=== PATIENT | female | born 1945 | race Hispanic/Latino ===

== ENCOUNTER 2018-04-11 09:50 | Emergency (ER) | payer MEDICARE ==
[~2018-04-11] VITALS: Ht 162.6 cm; Wt 147.4 kg
[~2018-04-11 09:50] MED LIST: ALDACTONE50 MG PO; BENTYL10 MG PO; FLEXERIL10 MG PO; GLIMEPIRIDE2 MG PO; IMITREX100 MG PO; LEVOTHYROXINE50 MCG PO; LISINOPRIL20 MG PO; LORAZEPAM2 MG PO; LOVASTATIN40 MG PO; NEXIUM40 MG PO
[2018-04-11] MEDS ORDERED: ONDANSETRON HCL INJ 2 MG/ML VIAL IV STA (09:56)
[2018-04-11] MEDS ORDERED: KETOROLAC TROMETHAMINE 30 MG/ML VIAL IV STA (09:56)
--- OUTSIDE RECORDS SUMMARY | 2018-04-11 09:56 | XMS REPORT | Continuity of Care Document ---
Author Author [facility] Interface Address Unknown Phone Unavailable Problems Problem Status Onset Date Classification Date Reported Comments Source UNK Active 09/09/2016 [facility] M81.0 - AGE-RELATED OSTEOPOROSIS W/O C Active 06/03/2016 [facility] N95.0 - POSTMENOPAUSAL BLEEDING Active 04/19/2016 [facility] 724.4 - LUMBOSACRAL CARLOS Active 07/10/2013 ANGELIKA Caceres Lumbar radiculopathy<sup>1</sup> Active 06/08/2012 Problem 10/02/2016 Data migrated from [employer] on 01/20/15. ANGELIKA Castro,[facility] Spinal stenosis of lumbar region<sup>2</sup> Active 06/08/2012 Problem 10/02/2016 Data migrated from [facility] on 01/20/15. ANGELIKA Castro,[facility] Diabetes Active Problem 10/02/2016 [facility] Heartburn Active Problem 10/02/2016 [facility] H/O total hysterectomy Active Problem 10/02/2016 [facility] High blood pressure Active Problem 10/02/2016 [facility] Arthritis Active Problem 10/02/2016 [facility] Anxiety and depression Active Problem 10/02/2016 [facility] MALIGNANT NEOPLASM OF ENDOMETRIUM Active [facility] Medications Medication Details Route Status Patient Instructions Ordering Provider Order Date Source gabapentin 300 MG Oral Capsule 300 mg, 1 cap, Route: PO, Drug form: CAP, TID, Dosing Weight 118.182, kg, Start date: 09/29/16 9:00:00 CDT, Duration: 30 day, Stop date: 10/28/16 17:00:00 CDT Inactive 09/29/2016 [facility] Furosemide 20 MG Oral Tablet 20 mg, 1 tab, Route: PO, Drug form: TAB, Daily, Dosing Weight 118.182, kg, Start date: 09/29/16 9:00:00 CDT, Duration: 30 day, Stop date: 10/28/16 9:00:00 CDT Inactive 09/29/2016 [facility] Metformin hydrochloride 500 MG Oral Tablet 500 mg, 1 tab, Route: PO, Drug form: TAB, BID, Dosing Weight 118.182, kg, Start date: 09/29/16 9:00:00 CDT, Duration: 30 day, Stop date: 10/28/16 17:00:00 CDT Inactive 09/29/2016 [facility] senna 8.6 mg oral tablet 8.6 mg=1 tab, PO, BID, # 100 tab, 1 Refill(s), Pharmacy: [facility] [id number] Active 09/29/2016 [facility] enoxaparin 40 mg/0.4 mL subcutaneous solution 40 mg=0.4 mL, SUB-Q, [id number], # 30 inj, 0 Refill(s), Pharmacy: [facility] Active 09/29/2016 [facility] Acetaminophen 325 MG / Hydrocodone Bitartrate 5 MG Oral Tablet 1 tab, PO, Q4H, PRN Pain Score 4-6, # 60 tab, 0 Refill(s), given to patient Active 09/29/2016 [facility] Sertraline 50 mg, 1 tab, Route: PO, Drug form: TAB, Daily, Dosing Weight 118.182, kg, Start date: 09/28/16 9:00:00 CDT, Duration: 30 day, Stop date: 10/27/16 9:00:00 CDTNotes: (Same as: Zoloft) No Longer Active 09/28/2016 [facility] Acetaminophen 300 MG / Codeine Phosphate 30 MG Oral Tablet [Tylenol with Codeine #3] 2 tab, Route: PO, Drug Form: TAB, Dosing Weight 118.182, kg, Q4Hnow, Start date: 09/28/16 9:00:00 CDT, Duration: 30 day, Stop date: 10/28/16 5:00:00 CDTNotes: Do not exceed 4gm/day of acetaminophen. (Same as: Tylenol with Codeine # 3) No Longer Active 09/28/2016 [facility] montelukast 10 mg, 1 tab, Route: PO, Drug form: TAB, Bedtime, Dosing Weight 118.182, kg, Start date: 09/27/16 21:00:00 CDT, Duration: 30 day, Stop date: 10/26/16 21:00:00 CDTNotes: (Same as:Singulair) No Longer Active 09/28/2016 [facility] Benadryl 25 mg, 1 tab, Route: PO, Drug form: TAB, Q4H, Dosing Weight 118.182, kg, PRN Other -See Comment, Start date: 09/27/16 20:54:00 CDT, Duration: 30 day, Stop date: 10/27/16 20:53:00 CDT No Longer Active 09/28/2016 [facility] Streptococcus pneumoniae serotype 1 capsular antigen diphtheria [id number] protein conjugate vaccine / Streptococcus pneumoniae serotype 14 capsular antigen diphtheria [id number] protein conjugate vaccine / Streptococcus pneumoniae serotype 18C capsular antigen d 0.5 mL, Route: IM, Drug Form: INJ, Daily, Start date: 09/27/16 17:35:00 CDT, Duration: 1 doses or times, Stop date: 09/27/16 17:35:00 CDTNotes: Lightly roll vial (DO NOT SHAKE) before administration. (Same as: Prevnar 13) Inactive 09/27/2016 [facility] Glucotrol 10 mg, 1 tab, Route: PO, Drug form: TAB, BID- Before Meals, Start date: 09/27/16 16:30:00 CDT, Duration: 30 day, Stop date: 10/27/16 7:30:00 CDTNotes: (Same as: Glucotrol) 30 min before meals. No Longer Active 09/27/2016 [facility] Lactated Ringers 500 mL 500 mL, Rate: 10 ml/hr, Infuse over: 50 hr, Route: IV, Dosing Weight 118.182 kg, Total Volume: 500, Start date: 09/27/16 13:12:00 CDT, Duration: 30 day, Stop date: 10/27/16 13:11:00 CDT No Longer Active 09/27/2016 [facility] sennosides, SENIOR CARE 8.6 mg, 1 tab, Route: PO, Drug Form: TAB, Dosing Weight 118.182, kg, BID, Start date: 09/27/16 10:58:00 CDT, Duration: 30 day, Stop date: 10/27/16 9:00:00 CDTNotes: (Same as: Senokot) No Longer Active 09/27/2016 [facility] Ibuprofen 800 mg, 1 tab, Route: PO, Drug form: TAB, Q8H, Dosing Weight 118.182, kg, PRN Pain Score 1-3, Start date: 09/27/16 10:54:00 CDT, Duration: 30 day, Stop date: 10/27/16 10:53:00 CDTNotes: (Same as: Motrin) "Do Not Crush" Take with food. No Longer Active 09/27/2016 [facility] Docusate Sodium 100 MG Oral Capsule [Colace] 100 mg, 1 cap, Route: PO, BID, Dosing Weight 118.182, kg, Start date: 09/27/16 10:46:00 CDT, Duration: 30 day, Stop date: 10/27/16 9:00:00 CDT Inactive 09/27/2016 [facility] Miralax 17 gm, 1 pkt, Route: PO, Drug form: PWDR, Daily, Dosing Weight 118.182, kg, Start date: 09/27/16 10:46:00 CDT, Duration: 30 day, Stop date: 10/27/16 9:00:00 CDTNotes: Dissolve in 8 oz of water or juice. (Same as: Miralax) No Longer Active 09/27/2016 [facility] Protonix 40 mg, 1 tab, Route: PO, Drug form: ECTAB, Daily, Dosing Weight 118.182, kg, Start date: 09/27/16 9:32:00 CDT, Duration: 30 day, Stop date: 10/27/16 9:00:00 CDTNotes: Tablet should not be chewed or crushed. (Same as: Protonix) No Longer Active 09/27/2016 [facility] Ativan 0.5 mg, 1 tab, Route: PO, Drug form: TAB, BID, Dosing Weight 118.182, kg, PRN Anxiety, Start date: 09/27/16 9:32:00 CDT, Duration: 30 day, Stop date: 10/27/16 9:31:00 CDTNotes: (Same as: Ativan) No Longer Active 09/27/2016 [facility] acetaminophen-hydrocodone 2 tab, Route: PO, Drug Form: TAB, Q4H, PRN Pain Score 7-10, Start date: 09/27/16 9:09:00 CDT, Stop date: 10/27/16 9:08:00 CDTNotes: (Same as: [place] 325/5) Do not exceed 4gm/day of acetaminophen. No Longer Active 09/27/2016 [facility] acetaminophen-hydrocodone 1 tab, Route: PO, Drug Form: TAB, Q4H, PRN Pain Score 4-6, Start date: 09/27/16 9:08:00 CDT, Stop date: 10/27/16 9:07:00 CDTNotes: (Same as: [place] 325/5) Do not exceed 4gm/day of acetaminophen. No Longer Active 09/27/2016 [facility] Albuterol 0.83 MG/ML Inhalant Solution 1.25 mg, 3 mL, Route: PO, Drug form: SOLN, RQ4H, Dosing Weight 118.182, kg, PRN Wheezing, Start date: 09/27/16 9:02:00 CDT, Duration: 30 day, Stop date: 10/27/16 9:01:00 CDTNotes: SEE RT DOCUMENTATION (Same as: Proventil) No Longer Active 09/27/2016 [facility] glimepiride 4 mg, Route: PO, Drug form: TAB, Daily, Dosing Weight 118.182, kg, Start date: 09/27/16 9:00:00 CDT, Duration: 30 day, Stop date: 10/26/16 9:00:00 CDT Inactive 09/27/2016 [facility] Lisinopril 10 mg, 2 tab, Route: PO, Drug form: TAB, Daily, Dosing Weight 118.182, kg, Start date: 09/27/16 9:00:00 CDT, Stop date: 10/26/16 9:00:00 CDTNotes: (Same as: Prinivil, Zestril) No Longer Active 09/27/2016 [facility] Lovenox 40 mg, 0.4 mL, Route: SUB-Q, Drug form: INJ, [id number], Dosing Weight 118.182, kg, Start date: 09/27/16 9:00:00 CDT, Duration: 30 day, Stop date: 10/26/16 9:00:00 CDTNotes: (Same as: Lovenox) No Longer Active 09/27/2016 [facility] Furosemide 20 MG Oral Tablet [Lasix] 20 mg, 1 tab, Route: PO, Drug form: TAB, Daily, Dosing Weight 118.182, kg, Start date: 09/27/16 9:00:00 CDT, Duration: 30 day, Stop date: 10/26/16 9:00:00 CDTNotes: (Same as: Lasix) May cause GI upset. Give with food or milk. No Longer Active 09/27/2016 [facility] Metformin hydrochloride 500 MG Oral Tablet 500 mg, 1 tab, Route: PO, Drug form: TAB, BID, Dosing Weight 118.182, kg, Start date: 09/27/16 9:00:00 CDT, Duration: 30 day, Stop date: 10/26/16 17:00:00 CDTNotes: (Same as: Glucophage) Take with meal No Longer Active 09/27/2016 [facility] gabapentin 300 MG Oral Capsule 300 mg, 1 cap, Route: PO, Drug form: CAP, Q8H, Dosing Weight 118.182, kg, (CrCl > 60 ml/min), Start date: 09/27/16 8:00:00 CDT, Duration: 30 day, Stop date: 10/27/16 0:00:00 CDTNotes: (Same as: Neurontin) No Longer Active 09/27/2016 [facility] Thyroxine 50 microgram, 1 tab, Route: PO, Drug form: TAB, Q630AM, Dosing Weight 118.182, kg, Start date: 09/27/16 6:30:00 CDT, Duration: 30 day, Stop date: 10/26/16 6:30:00 CDTNotes: Take 1 hour before or 2 hours after meal; Enteral feeds may interefere with the absorption of this medication.(Same as:Levothroid, Synthroid) No Longer Active 09/27/2016 [facility] Ofirmev 1,000 mg, 100 mL, Route: IV, Drug form: INJ, Q6Hnow, Dosing Weight 118.182, kg, for > or=50 kg, Start date: 09/26/16 15:00:00 CDT, Duration: 1 day, Stop date: 09/27/16 9:00:00 CDTNotes: Infuse over 15 minutes Do not exceed 4gm/day of acetaminophen MEDICATION WASTE Product Size: 1000 mg Product Wasted: ___ mg No Longer Active 09/26/2016 [facility] glycopyrrolate (ANES) Route: IV, Drug form: INJ, ONCE, Stop date: 09/26/16 12:09:00 CDT Inactive 09/26/2016 [facility] neostigmine (ANES) Route: IV, Drug form: INJ, ONCE, Stop date: 09/26/16 12:09:00 CDT Inactive 09/26/2016 [facility] Hydromorphone 15 mg, 30 mL, Route: IV, Initial Loading Dose: 0.4mg, NOVELTY [employer]ER Dose: 0.2 mg, NOVELTY [employer]ER Lockout: 10 minutes, Continuous Basal Rate: 0 mg, 4 Hour Limit (In MG): 6, Drug Form: INJ, Continuous, Start date: 09/26/16 12:00:00 CDT, Duration: 30 day, Stop date: 10/26/16...Notes: (Same as: Dilaudid) conc=0.5 mg/ml Hydromorphone NOVELTY MAKER Dose: ;Delay: ;Basal: No Longer Active 09/26/2016 [facility] Metoprolol 5 mg, 5 mL, Route: IVP, Drug form: INJ, Q6H, Dosing Weight 118.182, kg, PRN Other -See Comment, Start date: 09/26/16 11:56:00 CDT, Duration: 30 day, Stop date: 10/26/16 11:55:00 CDTNotes: (Same as: Lopressor) Push over 2 minutes No Longer Active 09/26/2016 [facility] Insulin, Aspart, Human 4 unit, 0.04 mL, Route: SUB-Q, Drug form: SOLN, TID-Before Meals, Dosing Weight 118.182, kg, PRN Blood Glucose Results, Start date: 09/26/16 11:55:00 CDT, Duration: 30 day, Stop date: 10/26/16 11:54:00 CDTNotes: Roll in palms of hands gently; Do not shake vigorously. (Same as: NovoLOG) "single patient use only" WASTE: F/P - Black; E - Municipal Trash Bin Stable for 28 days at room temperature. Expires in days from Date No Longer Active 09/26/2016 [facility] Glucagon 1 mg, Route: IM, Drug form: PDR/INJ, PRN, Dosing Weight 118.182, kg, PRN Blood Glucose Results, Start date: 09/26/16 11:55:00 CDT, Duration: 30 day, Stop date: 10/26/16 11:54:00 CDT No Longer Active 09/26/2016 [facility] Dextrose 50% Syringe 12.5 gm, 25 mL, Route: IVP, Drug Form: INJ, Dosing Weight 118.182, kg, PRN, PRN Blood Glucose Results, Start date: 09/26/16 11:55:00 CDT, Duration: 30 day, Stop date: 10/26/16 11:54:00 CDT No Longer Active 09/26/2016 [facility] Naloxone 0.04 mg, 0.1 mL, Route: IVP, Drug form: INJ, Q2MIN, Dosing Weight 118.182, kg, PRN Narcotic Reversal, Start date: 09/26/16 11:49:00 CDT, Duration: 30 day, Stop date: 10/26/16 11:48:00 CDTNotes: Same as Narcan No Longer Active 09/26/2016 [facility] Calcium Chloride 0.0014 MEQ/ML / Potassium Chloride 0.004 MEQ/ML / Sodium Chloride 0.103 MEQ/ML / Sodium Lactate 0.028 MEQ/ML Injectable Solution 1,000 mL, Rate: 100 ml/hr, Infuse over: 10 hr, Route: IV, Dosing Weight 118.182 kg, Total Volume: 1,000, Start date: 09/26/16 11:49:00 CDT, Duration: 30 day, Stop date: 10/26/16 11:48:00 CDT No Longer Active 09/26/2016 [facility] ondansetron (ANES) Route: IV, Drug form: INJ, ONCE, Stop date: 09/26/16 11:39:00 CDT Inactive 09/26/2016 [facility] ePHEDrine (ANES) Route: IV, Drug form: INJ, ONCE, Stop date: 09/26/16 9:24:00 CDT Inactive 09/26/2016 [facility] phenylephrine (ANES) Route: IV, Drug form: INJ, ONCE, Stop date: 09/26/16 9:24:00 CDT Inactive 09/26/2016 [facility] ceFAZolin (ANES) Route: IV, Drug form: INJ, ONCE, Stop date: 09/26/16 9:19:00 CDT Inactive 09/26/2016 [facility] metroNIDAZOLE (ANES) Route: IV, Drug form: INJ, ONCE, Stop date: 09/26/16 9:19:00 CDT Inactive 09/26/2016 [facility] lidocaine (ANES) Route: IV, Drug form: INJ, ONCE, Stop date: 09/26/16 9:19:00 CDT Inactive 09/26/2016 [facility] propofol (ANES) Route: IV, Drug form: INJ, ONCE, Stop date: 09/26/16 9:19:00 CDT Inactive 09/26/2016 [facility] fentaNYL (ANES) Route: IV, Drug form: INJ, ONCE, Stop date: 09/26/16 9:19:00 CDT Inactive 09/26/2016 [facility] acetaminophen (ANES) Route: IV, Drug form: INJ, ONCE, Stop date: 09/26/16 9:09:00 CDT Inactive 09/26/2016 [facility] rocuronium (ANES) Route: IV, Drug form: INJ, ONCE, Stop date: 09/26/16 9:04:00 CDT Inactive 09/26/2016 [facility] midazolam (ANES) Route: IV, Drug form: SOLN, ONCE, Stop date: 09/26/16 8:49:00 CDT Inactive 09/26/2016 [facility] sodium chloride 0.9% 1000 ml INJ (ANES) Route: IV, Total Volume: 1,000, Start date: 09/26/16 8:00:00 CDT, Stop date: 09/26/16 9:00:00 CDT Inactive 09/26/2016 [facility] LR 1000 mL INJ (ANES) Route: IV, Total Volume: 1,000, Start date: 09/26/16 7:49:00 CDT, Stop date: 09/26/16 8:49:00 CDT Inactive 09/26/2016 [facility] heparin 5,000 unit, Route: SUB-Q, ONCE, Dosing Weight 118.182, kg, Start date: 09/26/16 7:22:00 CDT, Stop date: 09/26/16 7:22:00 CDT Inactive 09/26/2016 [facility] Calcium Chloride 0.0014 MEQ/ML / Potassium Chloride 0.004 MEQ/ML / Sodium Chloride 0.103 MEQ/ML / Sodium Lactate 0.028 MEQ/ML Injectable Solution 1,000 mL, Rate: 25 ml/hr, Infuse over: 40 hr, Route: IV, Dosing Weight 118.182 kg, Total Volume: 1,000, Start date: 09/26/16 7:20:00 CDT, Duration: 30 day, Stop date: 10/26/16 7:19:00 CDT Inactive 09/26/2016 [facility] Insulin regular 3 unit, Route: IVP, ONCE, Dosing Weight 118.182, kg, Start date: 09/26/16 7:10:00 CDT, Stop date: 09/26/16 7:10:00 CDT Inactive 09/26/2016 [facility] 3 ML liraglutide 6 MG/ML Prefilled Syringe [Victoza] SUB- Q, Daily, 0 Refill(s) Active 09/21/2016 [facility] Metformin hydrochloride 500 MG Oral Tablet 500 mg=1 tab, PO, BID, 0 Refill(s) Active 09/21/2016 [facility] Allergies, Adverse Reactions, Alerts Substance Category Reaction Severity Reaction type Status Date Reported Comments Source Immunizations Immunization Date Given Site Status Last Updated Comments Source pneumococcal 13-valent vaccine 09/28/2016 Left Deltoid completed [facility] Results Order Name Results Value Reference Range Date Interpretation Comments Source CHEM PANEL A/G Ratio 0.7 0.7 - 1.6 09/29/2016 [facility] CHEM PANEL Globulin 3.9 g/dL 2.7 - 4.2 09/29/2016 [facility] CHEM PANEL B/C Ratio 17 6 - 25 09/29/2016 [facility] CHEM PANEL AGAP 13.8 meq/L 10.0 - 20.0 09/29/2016 [facility] CHEM PANEL eGFR 94 mL/min/1.73m2 09/29/2016 Result Comment: The eGFR is calculated using the CKD-EPI formula. In most young, healthy individuals the eGFR will be >90 mL/min/1.73m2. The eGFR declines with age. An eGFR of 60-89 may be normal in some populations, particularly the elderly, for whom the CKD-EPI formula has not been extensively validated. Use of the eGFR is not recommended in the following populations: Individuals with unstable creatinine concentrations, including patients and those with serious co-morbid conditions. Patients with extremes in muscle mass or diet. The data above are obtained from the National Kidney Disease Education Program (NKDEP) which additionally recommends that when the eGFR is used in patients with extremes of body mass index for purposes of drug dosing, the eGFR should be multiplied by the estimated BMI. [facility] CHEM PANEL AST 19 unit/L 0 - 37 09/29/2016 [facility] CHEM PANEL ALT 27 unit/L 0 - 65 09/29/2016 [facility] CHEM PANEL Total Protein 6.7 g/dL 6.4 - 8.4 09/29/2016 [facility]M PANEL Albumin Lvl 2.8 g/dL 3.5 - 5.0 09/29/2016 [facility] CHEM PANEL Bili Total 0.5 mg/dL 0.2 - 1.3 09/29/2016 [facility] CHEM PANEL Alk Phos 108 unit/L 39 - 136 09/29/2016 [facility] CHEM PANEL Glucose Lvl 169 mg/dL 70 - 99 09/29/2016 [facility] CHEM PANEL Potassium Lvl 3.8 meq/L 3.5 - 5.1 09/29/2016 [facility] CHEM PANEL Chloride Lvl 98 meq/L 95 - 109 09/29/2016 [facility] CHEM PANEL CO2 29 meq/L 24 - 32 09/29/2016 [facility] CHEM PANEL Calcium Lvl 8.7 mg/dL 8.5 - 10.5 09/29/2016 [facility] CHEM PANEL BUN 10 mg/dL 7 - 22 09/29/2016 [facility] CHEM PANEL Creatinine Lvl 0.58 mg/dL 0.50 - 1.40 09/29/2016 [facility] CHEM PANEL Sodium Lvl 137 meq/L 135 - 145 09/29/2016 [facility] CHEM PANEL Magnesium Lvl 1.8 mg/dL 1.8 - 2.4 09/29/2016 [facility] HEMATOLOGY MPV 9.1 fL 7.4 - 10.4 09/29/2016 [facility] HEMATOLOGY Platelet 214 K/CMM 133 - 450 09/29/2016 [facility] HEMATOLOGY RDW 14.0 % 11.5 - 14.5 09/29/2016 [facility] HEMATOLOGY MCHC 33.5 g/dL 32.0 - 36.0 09/29/2016 [facility] MCH 30.2 pg 27.0 - 31.0 09/29/2016 [facility] HEMATOLOGY MCV 90.1 fL 80.0 - 98.0 09/29/2016 [facility] Hct 34.5 % 36.0 - 48.0 09/29/2016 [facility] Hgb 11.6 g/dL 12.0 - 16.0 09/29/2016 [facility] WBC 12.4 K/CMM 3.7 - 10.4 09/29/2016 [facility] RBC 3.83 M/CMM 4.20 - 5.40 09/29/2016 [facility] Eosinophils # 0.3 K/CMM 0.0 - 0.5 09/29/2016 [facility] HEMATOLOGY Basophils # 0.1 K/CMM 0.0 - 0.2 09/29/2016 [facility] Basophils 1.0 % 0.0 - 1.0 09/29/2016 [facility] HEMATOLOGY Segs 73.2 % 45.0 - 75.0 09/29/2016 [facility] Monocytes 7.7 % 2.0 - 12.0 09/29/2016 [facility] Lymphocytes 15.7 % 20.0 - 40.0 09/29/2016 [facility] Eosinophils 2.4 % 0.0 - 4.0 09/29/2016 [facility] Monocytes # 1.0 K/CMM 0.0 - 0.8 09/29/2016 [facility] Lymphocytes # 1.9 K/CMM 1.0 - 5.5 09/29/2016 [facility] Segs-Bands # 9.1 K/CMM 1.5 - 8.1 09/29/2016 [facility] ELECTROLYTES AGAP 11.6 meq/L 10.0 - 20.0 09/27/2016 [facility] ELECTROLYTES eGFR 75 mL/min/1.73m2 09/27/2016 Result Comment: The eGFR is calculated using the CKD-EPI formula. In most young, healthy individuals the eGFR will be >90 mL/min/1.73m2. The eGFR declines with age. An eGFR of 60-89 may be normal in some populations, particularly the elderly, for whom the CKD-EPI formula has not been extensively validated. Use of the eGFR is not recommended in the following populations: Individuals with unstable creatinine concentrations, including patients and those with serious co-morbid conditions. Patients with extremes in muscle mass or diet. The data above are obtained from the National Kidney Disease Education Program (NKDEP) which additionally recommends that when the eGFR is used in patients with extremes of body mass index for purposes of drug dosing, the eGFR should be multiplied by the estimated BMI. [facility] ELECTROLYTES Chloride Lvl 101 meq/L 95 - 109 09/27/2016 [facility] ELECTROLYTES Potassium Lvl 4.6 meq/L 3.5 - 5.1 09/27/2016 [facility] ELECTROLYTES Calcium Lvl 8.4 mg/dL 8.5 - 10.5 09/27/2016 [facility] ELECTROLYTES CO2 27 meq/L 24 - 32 09/27/2016 [facility] ELECTROLYTES Glucose Lvl 240 mg/dL 70 - 99 09/27/2016 [facility] ELECTROLYTES Creatinine Lvl 0.80 mg/dL 0.50 - 1.40 09/27/2016 [facility] ELECTROLYTES BUN 15 mg/dL 7 - 22 09/27/2016 [facility] ELECTROLYTES Sodium Lvl 135 meq/L 135 - 145 09/27/2016 [facility] Monocytes # 1.1 K/CMM 0.0 - 0.8 09/27/2016 [facility] Lymphocytes # 1.7 K/CMM 1.0 - 5.5 09/27/2016 [facility] Segs 78.0 % 45.0 - 75.0 09/27/2016 [facility] Basophils 0.6 % 0.0 - 1.0 09/27/2016 [facility] Eosinophils 0.4 % 0.0 - 4.0 09/27/2016 [facility] Monocytes 8.3 % 2.0 - 12.0 09/27/2016 [facility] Lymphocytes 12.7 % 20.0 - 40.0 09/27/2016 [facility] Segs-Bands # 10.6 K/CMM 1.5 - 8.1 09/27/2016 [facility] Basophils # 0.1 K/CMM 0.0 - 0.2 09/27/2016 [facility] Eosinophils # 0.1 K/CMM 0.0 - 0.5 09/27/2016 [facility] WBC 13.6 K/CMM 3.7 - 10.4 09/27/2016 [facility] MCH 30.0 pg 27.0 - 31.0 09/27/2016 [facility] MCHC 33.1 g/dL 32.0 - 36.0 09/27/2016 [facility] Hgb 11.9 g/dL 12.0 - 16.0 09/27/2016 [facility] RBC 3.96 M/CMM 4.20 - 5.40 09/27/2016 [facility] HEMATOLOGY RDW 14.2 % 11.5 - 14.5 09/27/2016 [facility] HEMATOLOGY MCV 90.5 fL 80.0 - 98.0 09/27/2016 [facility] HEMATOLOGY Hct 35.9 % 36.0 - 48.0 09/27/2016 [facility] HEMATOLOGY Platelet 205 K/CMM 133 - 450 09/27/2016 [facility] MPV 8.5 fL 7.4 - 10.4 09/27/2016 [facility] BLOOD BANK RESULTS Rhig Reqd See Note 1 (09/21/16 1:27 PM) 09/21/2016 Result Comment: 09/27/2016 06:32 [id number] This patient is not a candidate for Rh(O)D immune globulin. [facility] BLOOD BANK RESULTS ABO/Rh A POS 09/21/2016 [facility] BLOOD [facility] RESULTS Antibody Scrn Negative (09/21/16 1:27 PM) 09/21/2016 [facility] CHEM PANEL Magnesium Lvl 1.8 mg/dL 1.8 - 2.4 09/21/2016 [facility] CHEM PANEL Glucose Lvl 149 mg/dL 70 - 99 09/21/2016 [facility] CHEM PANEL eGFR 90 mL/min/1.73m2 09/21/2016 Result Comment: The eGFR is calculated using the CKD-EPI formula. In most young, healthy individuals the eGFR will be >90 mL/min/1.73m2. The eGFR declines with age. An eGFR of 60-89 may be normal in some populations, particularly the elderly, for whom the CKD-EPI formula has not been extensively validated. Use of the eGFR is not recommended in the following populations: Individuals with unstable creatinine concentrations, including patients and those with serious co-morbid conditions. Patients with extremes in muscle mass or diet. The data above are obtained from the National Kidney Disease Education Program (NKDEP) which additionally recommends that when the eGFR is used in patients with extremes of body mass index for purposes of drug dosing, the eGFR should be multiplied by the estimated BMI. [facility] CHEM PANEL A/G Ratio 0.9 0.7 - 1.6 09/21/2016 [facility] CHEM PANEL Globulin 4.0 g/dL 2.7 - 4.2 09/21/2016 [facility] CHEM PANEL B/C Ratio 25 6 - 25 09/21/2016 [facility] CHEM PANEL AGAP 12.2 meq/L 10.0 - 20.0 09/21/2016 [facility] CHEM PANEL AST 15 unit/L 0 - 37 09/21/2016 [facility] CHEM PANEL Bili Total 0.7 mg/dL 0.2 - 1.3 09/21/2016 [facility] CHEM PANEL Alk Phos 102 unit/L 39 - 136 09/21/2016 [facility] CHEM PANEL CO2 27 meq/L 24 - 32 09/21/2016 [facility] CHEM PANEL Calcium Lvl 9.2 mg/dL 8.5 - 10.5 09/21/2016 [facility] CHEM PANEL Albumin Lvl 3.6 g/dL 3.5 - 5.0 09/21/2016 [facility] CHEM PANEL ALT 30 unit/L 0 - 65 09/21/2016 [facility] CHEM PANEL Total Protein 7.6 g/dL 6.4 - 8.4 09/21/2016 [facility] CHEM PANEL Chloride Lvl 102 meq/L 95 - 109 09/21/2016 [facility] CHE[facility] PANEL BUN 17 mg/dL 7 - 22 09/21/2016 [facility] PANEL Sodium Lvl 137 meq/L 135 - 145 09/21/2016 [facility]M PANEL Potassium Lvl 4.2 meq/L 3.5 - 5.1 09/21/2016 [facility]M PANEL Creatinine Lvl 0.68 mg/dL 0.50 - 1.40 09/21/2016 [facility] HEMATOLOGY MCV 89.6 fL 80.0 - 98.0 09/21/2016 [facility] HEMATOLOGY MCHC 33.5 g/dL 32.0 - 36.0 09/21/2016 [facility] HEMATOLOGY RDW 14.0 % 11.5 - 14.5 09/21/2016 [facility] HEMATOLOGY MCH 30.0 pg 27.0 - 31.0 09/21/2016 [facility] HEMATOLOGY RBC 4.66 M/CMM 4.20 - 5.40 09/21/2016 [facility] HEMATOLOGY WBC 11.8 K/CMM 3.7 - 10.4 09/21/2016 [facility] HEMATOLOGY Hct 41.8 % 36.0 - 48.0 09/21/2016 [facility] HEMATOLOGY Hgb 14.0 g/dL 12.0 - 16.0 09/21/2016 [facility] HEMATOLOGY Platelet 252 K/CMM 133 - 450 09/21/2016 [facility] HEMATOLOGY MPV 9.2 fL 7.4 - 10.4 09/21/2016 [facility] Basophils # 0.1 K/CMM 0.0 - 0.2 09/21/2016 [facility] HEMATOLOGY Lymphocytes 24.3 % 20.0 - 40.0 09/21/2016 [facility] Segs 66.9 % 45.0 - 75.0 09/21/2016 [facility] HEMATOLOGY Monocytes 6.8 % 2.0 - 12.0 09/21/2016 [facility] Eosinophils 1.4 % 0.0 - 4.0 09/21/2016 [facility] Segs-Bands # 7.9 K/CMM 1.5 - 8.1 09/21/2016 [facility] Basophils 0.6 % 0.0 - 1.0 09/21/2016 [facility] HEMATOLOGY Monocytes # 0.8 K/CMM 0.0 - 0.8 09/21/2016 [facility] Lymphocytes # 2.9 K/CMM 1.0 - 5.5 09/21/2016 [facility] Eosinophils # 0.2 K/CMM 0.0 - 0.5 09/21/2016 [facility] Digital Mammo Screening Win MA Digital Mammo Screening Win MA - DIGITAL MAMMO SCREENING WIN MA BILATERAL DIGITAL SCREENING MAMMOGRAM WITH CAD: 06/28/2016 CLINICAL: Z12.31 Encounter For Screening Mammogram For Malignant Neoplasm Of Breast. Current study was evaluated with a Computer Aided Detection (CAD) system. Comparison is made to exams dated: 12/09/2011 mammogram and 05/04/2010 mammogram [facility]. The tissue of both breasts is heterogeneously dense, which could obscure detection of small masses. There are benign appearing scattered calcifications in both breasts. No significant masses, calcifications, or other findings are seen in either breast. There has been no significant interval change. IMPRESSION: BENIGN There is no mammographic evidence of malignancy. A 1 year screening mammogram is recommended. Professional services are provided by the [facility]. Adele Eid M.D., ms/ruth:07/10/2016 11:00:42 [employer] Assistant: Anna Marie RIOS)(Tristian), [facility] This exam was dictated and interpreted by [address] [place] [address]. letter sent: Normal exam Mammogram BI-RADS: 2 Benign 06/28/2016 - - Read by: Adele Eid MD Dictated Date/time: 07/10/16 11:00 Electronically Signed by: Adele Eid MD 07/10/16 11:00 FINAL REPORT ANGELIKA Castro Bone Density DXA [employer] MA Bone Density [employer] MA - Bone Density [employer] MA BONE DENSITY EVALUATION: 06/28/2016 CLINICAL DATA: Post menopausal and clinical risk for osteoporosis. RISK FACTORS: . FINDINGS: Bone density evaluation was performed 06/28/2016 on the AP L1-L4 region of spine using a Hologic unit. The BMD average for the exam is 1.211 g/cm2. The T-score is 1.50 and the Z-score is 3.60. This matches the World Health Organization's criteria for normal bone density and places the patient within normal limits of fracture risk. An additional bone density evaluation was performed 06/28/2016 on the right femur neck using a Hologic unit. The BMD average for the exam is 0.897 g/cm2. The T-score is 0.40 and the Z-score is 1.90. This matches the World Health Organization's criteria for normal bone density and places the patient within normal limits of fracture risk. An additional bone density evaluation was performed 06/28/2016 on the right hip using a Hologic unit. The BMD average for the exam is 1.182 g/cm2. The T-score is 2.00 and the Z-score is 3.10. This matches the World Health Organization's criteria for normal bone density and places the patient within normal limits of fracture risk. An additional bone density evaluation was performed 06/28/2016 on the left femur neck using a Hologic unit. The BMD average for the exam is 0.904 g/cm2. The T- score is 0.50 and the Z-score is 2.00. This matches the World Health Organization's criteria for normal bone density and places the patient within normal limits of fracture risk. An additional bone density evaluation was performed 06/28/2016 on the left hip using a Hologic unit. The BMD average for the exam is 1.252 g/cm2. The T-score is 2.50 and the Z-score is 3.60. This matches the World Health Organization's criteria for normal bone density and places the patient within normal limits of fracture risk. IMPRESSION: BONE DENSITY WITHIN NORMAL LIMITS Patient is at normal risk for fracture. Professional services are provided by the [facility]. This exam was dictated and interpreted by [id number] for BOB Castro. Adele Eid M.D. ms/penrad:06/30/2016 09:33:06 [employer] Assistant: Henrietta DASH(Warren)(Tristian), [facility] Matthew 06/28/2016 - - Read by: Adele Eid MD Dictated Date/time: 06/30/16 09:33 Electronically Signed by: Adele Eid MD 06/30/16 09:33 FINAL REPORT BOB [place] Abdomen/Pelvis w/wo IV contrast CT Abdomen/Pelvis w/wo IV contrast CT EXAMINATION: CT of the abdomen and pelvis without and with contrast. HISTORY: C54.1 Malignant neoplasm of endometrium; lower abdominal pain; dysfunctional uterine bleeding COMPARISON: Comparison is made with pelvic ultrasound dated 04/25/2016 demonstrating abnormal endometrial thickening and a small fibroid. FINDINGS: Multiple contiguous transaxial CT images of the abdomen and pelvis are obtained without intravenous contrast. Subsequently, multiple contiguous transaxial CT images of the abdomen and pelvis are obtained following the intravenous administration of contrast. Oral contrast was administered. Delayed images are performed. Coronal and sagittal reformatted images are performed. Total DLP is 3034 mGy-cm. The visualized lung bases demonstrate no focal pneumonic consolidation, pleural effusion, or pneumothorax. The heart size is within normal limits without pericardial effusion. The liver, gallbladder, spleen, pancreas, adrenal glands, and kidneys are normal. There is no hydronephrosis. The bladder is grossly normal. There is a 1.7 cm fibroid along the uterine fundus. CT appearance of the reproductive organs is otherwise grossly normal. There is a small fat-containing umbilical hernia. The small and large bowel are normal in course and caliber without evidence of inflammation or obstruction. There is colonic diverticulosis without evidence of acute diverticulitis. The appendix is surgically absent. There is no free intraperitoneal fluid or gas. There is no abdominal or pelvic lymphadenopathy. The aorta is normal in course and caliber. There is mild atherosclerotic calcification of the abdominal aorta. There is a retroaortic left renal vein. Bone windows demonstrate no suspicious osteolytic or osteoblastic lesions. There is moderate to severe L4-5 degenerative disc disease with bilateral L4-5 and L5-S1 facet osteoarthritis. IMPRESSION: 1. Small 1.7 cm fibroid along the uterine fundus with otherwise normal CT appearance of the reproductive organs. Of note, the patient reports dysfunctional uterine bleeding and a prior pelvic ultrasound demonstrated endometrial thickening. Endometrial biopsy is recommended if not previously performed. 2. No evidence of metastatic disease within the abdomen or pelvis. 3. No CT evidence of acute intra-abdominal or intrapelvic pathologic process. There is no bowel obstruction, free intraperitoneal fluid, or free intraperitoneal gas. The appendix is surgically absent. 4. Small fat-containing umbilical hernia. 5. Colonic diverticulosis without evidence of acute diverticulitis. 6. Moderate to severe L4-L5 degenerative disc disease with bilateral L4-5 and L5- S1 facet osteoarthritis. 06/10/2016 - - Read by: Ramesh Ding MD Dictated Date/time: 06/10/16 14:52 Electronically Signed by: Ramesh Ding MD 06/10/16 15:02 FINAL REPORT ANGELIKA Castro Pelvis Transvaginal US Pelvis Transvaginal US EXAM: Pelvis Transvaginal US HISTORY: N95.0 Postmenopausal bleeding COMPARISON: None Technique: Transabdominal and Transvaginal Anaya scale and color doppler with limited spectral doppler imaging of the uterus and ovaries. Findings: The uterus measures 8.4 x 4.4 x 4.4 cm. The endometrial stripe measures 2.2 cm. There is a subserosal fibroid at the fundus which measures 1.6 cm. There are a few small cysts at the cervix, nabothian cysts. Neither ovary is seen. There is normal doppler flow. No large masses are seen in the bilateral adnexa. There is no free fluid. The bladder is distended and grossly unremarkable. IMPRESSION: Subserosal fundal fibroid measures 1.6 cm. The endometrial stripe is thickened measuring 2.2 cm. Recommend biopsy. 04/25/2016 - - Read by: Dirk Rai MD Dictated Date/time: 04/25/16 14:10 Electronically Signed by: Dirk Rai MD 04/25/16 14:17 FINAL REPORT ANGELIKA Castro Brain wo contrast MRI Brain wo contrast MRI COMPARISON: No prior exam. COMMENTS: No intracranial hemorrhage, ventriculomegaly, midline shift, or acute ischemia is seen. Flow voids are seen within the vessels at the skull base. There is no diffusion restriction. The brain volume is age-appropriate. The brainstem appears unremarkable. The cerebellum appears unremarkable. The sella appears unremarkable. Minimal bilateral maxillary sinus mucosal disease is present. IMPRESSION: 1. No acute intracranial hemorrhage, acute ischemia, or mass. 03/25/2016 - - Read by: Nikko Eaton MD Dictated Date/time: 03/25/16 10:02 Electronically Signed by: Nikko Eaton MD 03/25/16 10:27 FINAL REPORT [facility] [place] Vital Signs Vital Sign Value Date Comments Source Respitory Rate 16 09/29/2016 [facility] Temperature Oral (F) 97.8 F 09/29/2016 [facility] Respitory Rate 16 09/29/2016 [facility] Heart Rate 93 09/29/2016 [facility] Systolic (mm Hg) 137 09/29/2016 [facility] Diastolic (mm Hg) 81 09/29/2016 [facility] Temperature Oral (F) 98.5 F 09/29/2016 [facility] Systolic (mm Hg) 139 09/29/2016 [facility] Diastolic (mm Hg) 80 09/29/2016 [facility] Respitory Rate 16 09/29/2016 [facility] Heart Rate 91 09/29/2016 [facility] Temperature Oral (F) 98.1 F 09/29/2016 [facility] Heart Rate 101 09/29/2016 [facility] Systolic (mm Hg) 143 09/29/2016 [facility] Diastolic (mm Hg) 77 09/29/2016 [facility] Weight 118.182 09/21/2016 [facility] Height 162.56 cm 09/21/2016 [facility] BMI Calculated 44.72 09/21/2016 [facility] Encounters Location Location Details Encounter Type Encounter Number Reason For Visit Attending Provider ADM Date DC Date Status Source [facility] [place] [facility] [id number] John Negron 06/10/2014 06/11/2014 [facility] [place] [facility] [place] [facility] [id number] John Negron 07/10/2014 07/11/2014 [facility] [place] [facility] [place] [facility] [id number] Carlos Alberto Avila 03/25/2016 03/26/2016 [facility] [place] [facility] [place] [facility] [id number] Christine Cole 04/25/2016 04/26/2016 [facility] [place] [facility] [place] [facility] [id number] Amarilis Shah 06/10/2016 06/11/2016 [facility] [place] [facility] [place] [facility] [id number] Christine Cole 06/28/2016 06/29/2016 [facility] [place] Outpatient [id number] LAUREN JOHANSEN 09/01/2016 Active [facility] Outpatient [id number] LAUREN JOHANSEN 09/26/2016 Active [facility] Inpatient [id number] Nevin Leslie 09/26/2016 09/29/2016 [facility] Outpatient [id number] LAUREN JOHANSEN 10/06/2016 [facility] Procedures Procedure Code Date Perfomer Comments Source Appendectomy [id number] [facility] Carpal tunnel release [id number] [facility] Excision of tendon [id number] [facility] Open operation on knee meniscus [id number] [facility] Tonsillectomy [id number] [facility]
--- OUTSIDE RECORDS SUMMARY | 2018-04-11 09:56 | XMS REPORT | Summary of Care ---
Author Author [facility] [place] Organization [facility] [place] Address Unknown Phone Unavailable Encounter HQ Mavisr_morro(FIN) [id number] Date(s): 03/25/16 - 03/25/16 [facility] [place] [address] [place] [phone] Discharge Disposition: Home or Self Care Attending Physician: Carlos Alberto Avila MD Vital Signs No data available for this section Problem List Condition Effective Dates Status Health Status Informant Lumbar 06/08/12 Active radiculopathy1 Spinal stenosis of 06/08/12 Active lumbar region2 1Data migrated from [employer] on 01/20/15. 2Data migrated from [employer] on 01/20/15. Allergies, Adverse Reactions, Alerts Substance Reaction Severity Status NKDA1 Active 1Data migrated from [employer] on 07/22/15. Originally documented as NKA. Medications No data available for this section Results No data available for this section Immunizations No data available for this section Procedures No data available for this section Social History No data available for this section Assessment and Plan No data available for this section
--- OUTSIDE RECORDS SUMMARY | 2018-04-11 09:56 | XMS REPORT | Summary of Care ---
Author Author [facility] [place] Organization [facility] [place] Address Unknown Phone Unavailable Encounter HQ Mavisr_morro(FIN) [id number] Date(s): 06/10/16 - 06/10/16 [facility] [place] [address] [place] [phone] Discharge Disposition: Home or Self Care Attending Physician: Amarilis Shah MD Vital Signs No data available for [...]
--- OUTSIDE RECORDS SUMMARY | 2018-04-11 09:56 | XMS REPORT | Summary of Care ---
Author Organization Unknown Address Unknown Phone Unavailable Encounter HQ Encntr_morro([facility]) [id number] Date(s): 07/10/14 - 07/10/14 [facility] Outpatient Imaging - [address] [address] [place] Discharge Disposition: Home Physician Attending: John Negron MD Reason for Visit 719.46 - JOINT PAIN-L/LE Problem List No data available for this section Allergies, Adverse Reactions, Alerts No data available for this section Medications No data available for this section Medications Administered During Your Visit No data available for this section Immunizations No data available for this section
--- OUTSIDE RECORDS SUMMARY | 2018-04-11 09:56 | XMS REPORT | Summary of Care ---
Author Author [facility] [place] Organization [facility] [place] Address Unknown Phone Unavailable Encounter HQ Karen_morro(FIN) [id number] Date(s): 06/28/16 - 06/28/16 [facility] [place] [address] [place] [phone] Discharge Disposition: Home or Self Care Attending Physician: Christine Cole MD Vital Signs No data available for [...]
--- OUTSIDE RECORDS SUMMARY | 2018-04-11 09:56 | XMS REPORT | Summary of Care ---
Author Organization Unknown Address Unknown Phone Unavailable Encounter HQ Obinnantr_morro([facility]) [id number] Date(s): 06/10/14 - 06/10/14 [facility] Outpatient Imaging - [address] [address] [place] Discharge Disposition: Home Physician Attending: John Negron MD Reason for Visit 719.41 - JOINT PAIN-SHLD Problem List No data available for this section Allergies, Adverse Reactions, Alerts No data available for this section Medications No data available for this section Medications Administered During Your Visit No data available for this section Immunizations No data available for this section
--- OUTSIDE RECORDS SUMMARY | 2018-04-11 09:56 | XMS REPORT | Summary of Care ---
Author Author [facility] - [place] Organization [facility] [place] Address Unknown Phone Unavailable Encounter HQ Karen_morro(FIN) [id number] Date(s): 04/25/16 - 04/25/16 [facility] - [place] [address] [place] [phone] Discharge Disposition: Home or Self Care Attending [...]
--- OUTSIDE RECORDS SUMMARY | 2018-04-11 09:56 | XMS REPORT | Summary of Care ---
Author Author [facility] Organization [facility] Address Unknown Phone Unavailable Encounter [facility](BEAT[facility]) [id number] Date(s): 09/26/16 - 09/29/16 [facility] [address] [place] [address]- Discharge Disposition: Home or Self Care Attending Physician: Nevin Leslie MD Admitting Physician: Nevin Leslie MD Referring Physician: Nevin Leslie MD Vital Signs 1 2 3 Most recent to oldest [Reference Range]: 162.56 cm (09/21/16 11:17 AM) Height 97.8 DegF (09/29/16 7:37 AM) 98.5 DegF (09/29/16 4:45 AM) 98.1 DegF (09/28/16 10:23 PM) Temperature Oral [96.4-99.1 DegF] 137/81 mmHg (09/29/16 7:37 AM) 139/80 mmHg (09/29/16 4:45 AM) 143/77 mmHg *HI* (09/28/16 10:23 PM) Blood Pressure [90-140/60-90 mmHg] 16 BRMIN (09/29/16 8:41 AM) 16 BRMIN (09/29/16 7:37 AM) 16 BRMIN (09/29/16 4:45 AM) Respiratory Rate [14-20 BRMIN] 93 bpm (09/29/16 7:37 AM) 91 bpm (09/29/16 4:45 AM) 101 bpm *HI* (09/28/16 10:23 PM) Peripheral Pulse Rate [60-100 bpm] 118.182 kg (09/21/16 11:17 AM) Weight 44.72 m2 (09/21/16 11:17 AM) Body Mass Index Problem List Condition Effective Dates Status Health Status Informant Diabetes(Confirmed) Active Heartburn(Confirmed) Active H/O total Active hysterectomy(Confirm ed) High blood Active pressure(Confirmed) Arthritis(Confirmed) Active Lumbar 06/08/12 Active radiculopathy1 Anxiety and Active depression(Confirmed ) Spinal stenosis of 06/08/12 Active lumbar region2 1Data migrated from [employer] on 01/20/15. 2Data migrated from [employer] on 01/20/15. Allergies, Adverse Reactions, Alerts Substance Reaction Severity Status NKDA1 Active 1Data migrated from [employer] on 07/22/15. Originally documented as NKA. Medications acetaminophen (ANES) Route: IV, Drug form: INJ, ONCE, Stop date: 09/26/16 9:09:00 CDT Start Date: 09/26/16 Stop Date: 09/26/16 Status: Completed acetaminophen-hydrocodone 1 tab, Route: PO, Drug Form: TAB, Q4H, PRN Pain Score 4-6, Start date: 09/27/16 9:08:00 CDT, Stop date: 10/27/16 9:07:00 CDT Notes: (Same as: [place] 325/5) Do not exceed 4gm/day of acetaminophen. Start Date: 09/27/16 Stop Date: 09/29/16 Status: Discontinued acetaminophen-hydrocodone 2 tab, Route: PO, Drug Form: TAB, Q4H, PRN Pain Score 7-10, Start date: 09/27/16 9:09:00 CDT, Stop date: 10/27/16 9:08:00 CDT Notes: (Same as: [place] 325/5) Do not exceed 4gm/day of acetaminophen. Start Date: 09/27/16 Stop Date: 09/29/16 Status: Discontinued acetaminophen-hydrocodone 325 mg-5 mg oral tablet 1 tab, PO, Q4H, PRN Pain Score 4-6, # 60 tab, 0 Refill(s), given to patient Start Date: 09/29/16 Stop Date: 09/29/17 Status: Ordered albuterol 0.042% inhalation solution 1.25 mg, 3 mL, Route: PO, Drug form: SOLN, RQ4H, Dosing Weight 118.182, kg, PRN Wheezing, Start date: 09/27/16 9:02:00 CDT, Duration: 30 day, Stop date: 7 9:01:00 CDT Notes: SEE RT DOCUMENTATION (Same as: Proventil) Start Date: 09/27/16 Stop Date: 09/29/16 Status: Discontinued Ativan 0.5 mg, 1 tab, Route: PO, Drug form: TAB, BID, Dosing Weight 118.182, kg, PRN An xiety, Start date: 09/27/16 9:32:00 CDT, Duration: 30 day, Stop date: 10/27/16 9 :31:00 CDT Notes: (Same as: Ativan) Start Date: 09/27/16 Stop Date: 09/29/16 Status: Discontinued Benadryl 25 mg, 1 tab, Route: PO, Drug form: TAB, Q4H, Dosing Weight 118.182, kg, PRN Oth er -See Comment, Start date: 09/27/16 20:54:00 CDT, Duration: 30 day, Stop date: 10/27/16 20:53:00 CDT Start Date: 09/27/16 Stop Date: 09/29/16 Status: Discontinued ceFAZolin (ANES) Route: IV, Drug form: INJ, ONCE, Stop date: 09/26/16 9:19:00 CDT Start Date: 09/26/16 Stop Date: 09/26/16 Status: Completed Colace 100 mg oral capsule 100 mg, 1 cap, Route: PO, BID, Dosing Weight 118.182, kg, Start date: 09/27/16 1 0:46:00 CDT, Duration: 30 day, Stop date: 10/27/16 9:00:00 CDT Start Date: 09/27/16 Stop Date: 09/27/16 Status: Discontinued Dextrose 50% Syringe 12.5 gm, 25 mL, Route: IVP, Drug Form: INJ, Dosing Weight 118.182, kg, PRN, PRN Blood Glucose Results, Start date: 09/26/16 11:55:00 CDT, Duration: 30 day, Stop date: 10/26/16 11:54:00 CDT Start Date: 09/26/16 Stop Date: 09/29/16 Status: Discontinued Dextrose 50% Syringe 25 gm, 50 mL, Route: IVP, Drug Form: INJ, Dosing Weight 118.182, kg, PRN, PRN Bl ood Glucose Results, Start date: 09/26/16 11:55:00 CDT, Duration: 30 day, Stop d ate: 10/26/16 11:54:00 CDT Start Date: 09/26/16 Stop Date: 09/29/16 Status: Discontinued enoxaparin 40 mg/0.4 mL subcutaneous solution 40 mg=0.4 mL, SUB-Q, [id number], # 30 inj, 0 Refill(s), Pharmacy: [facility] [id number] Start Date: 09/29/16 Stop Date: 10/30/16 Status: Ordered ePHEDrine (ANES) Route: IV, Drug form: INJ, ONCE, Stop date: 09/26/16 9:24:00 CDT Start Date: 09/26/16 Stop Date: 09/26/16 Status: Completed fentaNYL (ANES) Route: IV, Drug form: INJ, ONCE, Stop date: 09/26/16 9:19:00 CDT Start Date: 09/26/16 Stop Date: 09/26/16 Status: Completed furosemide 20 mg oral tablet 20 mg, 1 tab, Route: PO, Drug form: TAB, Daily, Dosing Weight 118.182, kg, Start date: 09/29/16 9:00:00 CDT, Duration: 30 day, Stop date: 10/28/16 9:00:00 CDT Start Date: 09/29/16 Stop Date: 09/29/16 Status: Deleted gabapentin 300 mg oral capsule 300 mg, 1 cap, Route: PO, Drug form: CAP, TID, Dosing Weight 118.182, kg, Start date: 09/29/16 9:00:00 CDT, Duration: 30 day, Stop date: 10/28/16 17:00:00 CDT Start Date: 09/29/16 Stop Date: 09/29/16 Status: Deleted gabapentin 300 mg oral capsule 300 mg, 1 cap, Route: PO, Drug form: CAP, Q8H, Dosing Weight 118.182, kg, (CrCl > 60 ml/min), Start date: 09/27/16 8:00:00 CDT, Duration: 30 day, Stop date: 10/27/16 0:00:00 CDT Notes: (Same as: Neurontin) Start Date: 09/27/16 Stop Date: 09/29/16 Status: Discontinued glimepiride 4 mg, Route: PO, Drug form: TAB, Daily, Dosing Weight 118.182, kg, Start date: 0 09/27/16 9:00:00 CDT, Duration: 30 day, Stop date: 10/26/16 9:00:00 CDT Start Date: 09/27/16 Stop Date: 09/27/16 Status: Deleted glucagon 1 mg, Route: IM, Drug form: PDR/INJ, PRN, Dosing Weight 118.182, kg, PRN Blood G lucose Results, Start date: 09/26/16 11:55:00 CDT, Duration: 30 day, Stop date: 10/26/16 11:54:00 CDT Start Date: 09/26/16 Stop Date: 09/29/16 Status: Discontinued Glucotrol 10 mg, 1 tab, Route: PO, Drug form: TAB, BID-Before Meals, Start date: 09/27/16 16:30:00 CDT, Duration: 30 day, Stop date: 10/27/16 7:30:00 CDT Notes: (Same as: Glucotrol) 30 min before meals. Start Date: 09/27/16 Stop Date: 09/29/16 Status: Discontinued glycopyrrolate (ANES) Route: IV, Drug form: INJ, ONCE, Stop date: 09/26/16 12:09:00 CDT Start Date: 09/26/16 Stop Date: 09/26/16 Status: Completed heparin 5,000 unit, Route: SUB-Q, ONCE, Dosing Weight 118.182, kg, Start date: 09/26/16 7:22:00 CDT, Stop date: 09/26/16 7:22:00 CDT Start Date: 09/26/16 Stop Date: 09/26/16 Status: Completed HYDROmorphone HOSPITAL EDUCATOR 0.5mg/ml 30ml INJ 15 mg 15 mg, 30 mL, Route: IV, Initial Loading Dose: 0.4mg, HOSPITAL EDUCATOR Dose: 0.2 mg, HOSPITAL EDUCATOR Lock out: 10 minutes, Continuous Basal Rate: 0 mg, 4 Hour Limit (In MG): 6, Drug Form : INJ, Continuous, Start date: 09/26/16 12:00:00 CDT, Duration: 30 day, Stop gale e: 10/26/16... Notes: (Same as: Dilaudid) conc=0.5 mg/mlHydromorphone HOSPITAL EDUCATOR Dose: ;Delay: ;Basal: Start Date: 09/26/16 Stop Date: 09/28/16 Status: Discontinued ibuprofen 800 mg, 1 tab, Route: PO, Drug form: TAB, Q8H, Dosing Weight 118.182, kg, PRN Pa in Score 1-3, Start date: 09/27/16 10:54:00 CDT, Duration: 30 day, Stop date: 10:53:00 CDT Notes: (Same as: Kelsie)"Do Not Crush" Take with food. Start Date: 09/27/16 Stop Date: 09/29/16 Status: Discontinued insulin aspart 4 unit, 0.04 mL, Route: SUB-Q, Drug form: SOLN, TID-Before Meals, Dosing Weight 118.182, kg, PRN Blood Glucose Results, Start date: 09/26/16 11:55:00 CDT, Durat ion: 30 day, Stop date: 10/26/16 11:54:00 CDT Notes: Roll in palms of hands gently; Do not shake vigorously. (Same as: Jenny Garduno)"single patient use only"WASTE: F/P - Black; E - Municipal Trash Bin Stable f or 28 days at room temperature.Expires in days from Date Start Date: 09/26/16 Stop Date: 09/29/16 Status: Discontinued insulin aspart 2 unit, 0.02 mL, Route: SUB-Q, Drug form: SOLN, TID-Before Meals, Dosing Weight 118.182, kg, PRN Blood Glucose Results, Start date: 09/26/16 11:55:00 CDT, Durat ion: 30 day, Stop date: 10/26/16 11:54:00 CDT Notes: Roll in palms of hands gently; Do not shake vigorously. (Same as: Jenny Garduno)"single patient use only"WASTE: F/P - Black; E - Municipal Trash Bin Stable f or 28 days at room temperature.Expires in days from Date Start Date: 09/26/16 Stop Date: 09/29/16 Status: Discontinued insulin aspart 10 unit, 0.1 mL, Route: SUB-Q, Drug form: SOLN, TID-Before Meals, Dosing Weight 118.182, kg, PRN Blood Glucose Results, Start date: 09/26/16 11:55:00 CDT, Durat ion: 30 day, Stop date: 10/26/16 11:54:00 CDT Notes: Roll in palms of hands gently; Do not shake vigorously. (Same as: NovoTRU Garduno)"single patient use only"WASTE: F/P - Black; E - Municipal Trash Bin Stable f or 28 days at room temperature.Expires in days from Date Start Date: 09/26/16 Stop Date: 09/29/16 Status: Discontinued insulin aspart 8 unit, 0.08 mL, Route: SUB-Q, Drug form: SOLN, TID-Before Meals, Dosing Weight 118.182, kg, PRN Blood Glucose Results, Start date: 09/26/16 11:55:00 CDT, Durat ion: 30 day, Stop date: 10/26/16 11:54:00 CDT Notes: Roll in palms of hands gently; Do not shake vigorously. (Same as: NovoTRU G)"single patient use only"WASTE: F/P - Black; E - Municipal Trash Bin Stable f or 28 days at room temperature.Expires in days from Date Start Date: 09/26/16 Stop Date: 09/29/16 Status: Discontinued insulin aspart 6 unit, 0.06 mL, Route: SUB-Q, Drug form: SOLN, TID-Before Meals, Dosing Weight 118.182, kg, PRN Blood Glucose Results, Start date: 09/26/16 11:55:00 CDT, Durat ion: 30 day, Stop date: 10/26/16 11:54:00 CDT Notes: Roll in palms of hands gently; Do not shake vigorously. (Same as: NovoLO G)"single patient use only"WASTE: F/P - Black; E - Municipal Trash Bin Stable f or 28 days at room temperature.Expires in days from Date Start Date: 09/26/16 Stop Date: 09/29/16 Status: Discontinued Insulin regular 3 unit, Route: IVP, ONCE, Dosing Weight 118.182, kg, Start date: 09/26/16 7:10:0 0 CDT, Stop date: 09/26/16 7:10:00 CDT Start Date: 09/26/16 Stop Date: 09/26/16 Status: Completed Lactated Ringers 1,000 mL 1,000 mL, Rate: 100 ml/hr, Infuse over: 10 hr, Route: IV, Dosing Weight 118.182 kg, Total Volume: 1,000, Start date: 09/26/16 11:49:00 CDT, Duration: 30 day, St op date: 10/26/16 11:48:00 CDT Start Date: 09/26/16 Stop Date: 09/27/16 Status: Discontinued Lactated Ringers 500 mL 500 mL, Rate: 10 ml/hr, Infuse over: 50 hr, Route: IV, Dosing Weight 118.182 kg, Total Volume: 500, Start date: 09/27/16 13:12:00 CDT, Duration: 30 day, Stop da te: 10/27/16 13:11:00 CDT Start Date: 09/27/16 Stop Date: 09/28/16 Status: Discontinued Lactated Ringers Injection IV 1000 mL 1,000 mL, Rate: 25 ml/hr, Infuse over: 40 hr, Route: IV, Dosing Weight 118.182 k g, Total Volume: 1,000, Start date: 09/26/16 7:20:00 CDT, Duration: 30 day, Stop date: 10/26/16 7:19:00 CDT Start Date: 09/26/16 Stop Date: 09/26/16 Status: Discontinued Lasix 20 mg oral tablet 20 mg, 1 tab, Route: PO, Drug form: TAB, Daily, Dosing Weight 118.182, kg, Start date: 09/27/16 9:00:00 CDT, Duration: 30 day, Stop date: 10/26/16 9:00:00 CDT Notes: (Same as: Lasix) May cause GI upset. Give with food or milk. Start Date: 09/27/16 Stop Date: 09/29/16 Status: Discontinued levothyroxine 50 microgram, 1 tab, Route: PO, Drug form: TAB, Q630AM, Dosing Weight 118.182, k g, Start date: 09/27/16 6:30:00 CDT, Duration: 30 day, Stop date: 10/26/16 6:30: 00 CDT Notes: Take 1 hour before or 2 hours after meal; Enteral feeds may interefere wi th the absorption of this medication.(Same as:Levothroid, Synthroid) Start Date: 09/27/16 Stop Date: 09/29/16 Status: Discontinued lidocaine (ANES) Route: IV, Drug form: INJ, ONCE, Stop date: 09/26/16 9:19:00 CDT Start Date: 09/26/16 Stop Date: 09/26/16 Status: Completed lisinopril 10 mg, 2 tab, Route: PO, Drug form: TAB, Daily, Dosing Weight 118.182, kg, Start date: 09/27/16 9:00:00 CDT, Stop date: 10/26/16 9:00:00 CDT Notes: (Same as: Prinivil, Zestril) Start Date: 09/27/16 Stop Date: 09/29/16 Status: Discontinued lisinopril 10 mg, Route: PO, Drug form: TAB, Daily, Dosing Weight 118.182, kg, Start date: 09/27/16 9:00:00 CDT, Duration: 30 day, Stop date: 10/26/16 9:00:00 CDT Start Date: 09/27/16 Stop Date: 09/27/16 Status: Deleted Lovenox 40 mg, 0.4 mL, Route: SUB-Q, Drug form: INJ, [id number], Dosing Weight 118.182, kg , Start date: 09/27/16 9:00:00 CDT, Duration: 30 day, Stop date: 10/26/16 9:00:0 0 CDT Notes: (Same as: Lovenox) Start Date: 09/27/16 Stop Date: 09/29/16 Status: Discontinued LR 1000 mL INJ (ANES) Route: IV, Total Volume: 1,000, Start date: 09/26/16 7:49:00 CDT, Stop date: 06/14 8:49:00 CDT Start Date: 09/26/16 Stop Date: 09/26/16 Status: Completed metFORMIN 500 mg oral tablet 500 mg, 1 tab, Route: PO, Drug form: TAB, BID, Dosing Weight 118.182, kg, Start date: 09/27/16 9:00:00 CDT, Duration: 30 day, Stop date: 10/26/16 17:00:00 CDT Notes: (Same as: Glucophage) Take with meal Start Date: 09/27/16 Stop Date: 09/29/16 Status: Discontinued metFORMIN 500 mg oral tablet 500 mg=1 tab, PO, BID, 0 Refill(s) Start Date: 09/21/16 Status: Ordered metFORMIN 500 mg oral tablet 500 mg, 1 tab, Route: PO, Drug form: TAB, BID, Dosing Weight 118.182, kg, Start date: 09/29/16 9:00:00 CDT, Duration: 30 day, Stop date: 10/28/16 17:00:00 CDT Start Date: 09/29/16 Stop Date: 09/29/16 Status: Deleted metoprolol 5 mg/5 ml INJ 5 mg, 5 mL, Route: IVP, Drug form: INJ, Q6H, Dosing Weight 118.182, kg, PRN Othe r -See Comment, Start date: 09/26/16 11:56:00 CDT, Duration: 30 day, Stop date: 10/26/16 11:55:00 CDT Notes: (Same as: Lopressor)Push over 2 minutes Start Date: 09/26/16 Stop Date: 09/27/16 Status: Discontinued metroNIDAZOLE (ANES) Route: IV, Drug form: INJ, ONCE, Stop date: 09/26/16 9:19:00 CDT Start Date: 09/26/16 Stop Date: 09/26/16 Status: Completed midazolam (ANES) Route: IV, Drug form: SOLN, ONCE, Stop date: 09/26/16 8:49:00 CDT Start Date: 09/26/16 Stop Date: 09/26/16 Status: Completed MiraLax 17 gm, 1 pkt, Route: PO, Drug form: PWDR, Daily, Dosing Weight 118.182, kg, Star t date: 09/27/16 10:46:00 CDT, Duration: 30 day, Stop date: 10/27/16 9:00:00 CDT Notes: Dissolve in 8 oz of water or juice.(Same as: Miralax) Start Date: 09/27/16 Stop Date: 09/29/16 Status: Discontinued montelukast 10 mg, 1 tab, Route: PO, Drug form: TAB, Bedtime, Dosing Weight 118.182, kg, Sta rt date: 09/27/16 21:00:00 CDT, Duration: 30 day, Stop date: 10/26/16 21:00:00 C DT Notes: (Same as:Singulair) Start Date: 09/27/16 Stop Date: 09/29/16 Status: Discontinued naloxone 0.04 mg, 0.1 mL, Route: IVP, Drug form: INJ, Q2MIN, Dosing Weight 118.182, kg, P RN Narcotic Reversal, Start date: 09/26/16 11:49:00 CDT, Duration: 30 day, Stop date: 10/26/16 11:48:00 CDT Notes: Same as Narcan Start Date: 09/26/16 Stop Date: 09/29/16 Status: Discontinued neostigmine (ANES) Route: IV, Drug form: INJ, ONCE, Stop date: 09/26/16 12:09:00 CDT Start Date: 09/26/16 Stop Date: 09/26/16 Status: Completed Ofirmev 1,000 mg, 100 mL, Route: IV, Drug form: INJ, Q6Hnow, Dosing Weight 118.182, kg, for > or=50 kg, Start date: 09/26/16 15:00:00 CDT, Duration: 1 day, Stop date: 09/27/16 9:00:00 CDT Notes: Infuse over 15 minutesDo not exceed 4gm/day of acetaminophen MEDICAT ION WASTE Product Size: 1000 mgProduct Wasted: ___ mg Start Date: 09/26/16 Stop Date: 09/27/16 Status: Discontinued ondansetron (ANES) Route: IV, Drug form: INJ, ONCE, Stop date: 09/26/16 11:39:00 CDT Start Date: 09/26/16 Stop Date: 09/26/16 Status: Completed phenylephrine (ANES) Route: IV, Drug form: INJ, ONCE, Stop date: 09/26/16 9:24:00 CDT Start Date: 09/26/16 Stop Date: 09/26/16 Status: Completed pneumococcal 13-valent vaccine 0.5 mL, Route: IM, Drug Form: INJ, Daily, Start date: 09/27/16 17:35:00 CDT, Dur ation: 1 doses or times, Stop date: 09/27/16 17:35:00 CDT Notes: Lightly roll vial (DO NOT SHAKE) before administration. (Same as: Prevna r 13) Start Date: 09/27/16 Stop Date: 09/27/16 Status: Completed propofol (ANES) Route: IV, Drug form: INJ, ONCE, Stop date: 09/26/16 9:19:00 CDT Start Date: 09/26/16 Stop Date: 09/26/16 Status: Completed Protonix 40 mg, 1 tab, Route: PO, Drug form: ECTAB, Daily, Dosing Weight 118.182, kg, Sta rt date: 09/27/16 9:32:00 CDT, Duration: 30 day, Stop date: 10/27/16 9:00:00 CDT Notes: Tablet should not be chewed or crushed.(Same as: Protonix) Start Date: 09/27/16 Stop Date: 09/29/16 Status: Discontinued rocuronium (ANES) Route: IV, Drug form: INJ, ONCE, Stop date: 09/26/16 9:04:00 CDT Start Date: 09/26/16 Stop Date: 09/26/16 Status: Completed senna 8.6 mg, 1 tab, Route: PO, Drug Form: TAB, Dosing Weight 118.182, kg, BID, Start date: 09/27/16 10:58:00 CDT, Duration: 30 day, Stop date: 10/27/16 9:00:00 CDT Notes: (Same as: Senokot) Start Date: 09/27/16 Stop Date: 09/29/16 Status: Discontinued senna 8.6 mg oral tablet 8.6 mg=1 tab, PO, BID, # 100 tab, 1 Refill(s), [id number] Start Date: 09/29/16 Stop Date: 09/29/17 Status: Ordered sertraline 50 mg, 1 tab, Route: PO, Drug form: TAB, Daily, Dosing Weight 118.182, kg, Start date: 09/28/16 9:00:00 CDT, Duration: 30 day, Stop date: 10/27/16 9:00:00 CDT Notes: (Same as: Zoloft) Start Date: 09/28/16 Stop Date: 09/29/16 Status: Discontinued sodium chloride 0.9% 1000 ml INJ (ANES) Route: IV, Total Volume: 1,000, Start date: 09/26/16 8:00:00 CDT, Stop date: 06/14 9:00:00 CDT Start Date: 09/26/16 Stop Date: 09/26/16 Status: Completed Tylenol with Codeine #3 oral tablet 2 tab, Route: PO, Drug Form: TAB, Dosing Weight 118.182, kg, Q4Hnow, Start date: 09/28/16 9:00:00 CDT, Duration: 30 day, Stop date: 10/28/16 5:00:00 CDT Notes: Do not exceed 4gm/day of acetaminophen. (Same as: Tylenol with Codeine # 3) Start Date: 09/28/16 Stop Date: 09/27/16 Status: Canceled Victoza 18 mg/3 mL subcutaneous injection SUB-Q, Daily, 0 Refill(s) Start Date: 09/21/16 Status: Ordered Results BLOOD BANK RESULTS 1 2 3 Most recent to oldest [Reference Range]: A POS *Unknown* (09/21/16 1:27 PM) ABO/Rh Negative (09/21/16 1:27 PM) Antibody Scrn See Note 1 (09/21/16 1:27 PM) Rhig Reqd 1Result Comment: 09/27/2016 06:32 [id number] This patient is not a candidate for Rh(O)D immune globulin. ELECTROLYTES 1 2 3 Most recent to oldest [Reference Range]: 137 mEq/L (09/29/16 7:28 AM) 135 mEq/L (09/27/16 7:12 AM) 137 mEq/L (09/21/16 1: PM) Sodium Lvl [135-145 mEq/L] 3.8 mEq/L (09/29/16 7:28 AM) 4.6 mEq/L (09/27/16 7:12 AM) 4.2 mEq/L (09/21/16 1: PM) Potassium Lvl [3.5-5.1 mEq/L] 98 mEq/L (09/29/16 7:28 AM) 101 mEq/L (09/27/16 7:12 AM) 102 mEq/L (09/21/16 1: PM) Chloride Lvl [95-109 mEq/L] 29 mEq/L (09/29/16: AM) 27 mEq/L (09/27/16 7:12 AM) 27 mEq/L (09/21/16 1: PM) CO2 [24-32 mEq/L] 13.8 mEq/L (09/29/16: AM) 11.6 mEq/L (09/27/16 7:12 AM) 12.2 mEq/L (09/21/16 1: PM) AGAP [10.0-20.0 mEq/L] CHEM PANEL 1 2 3 Most recent to oldest [Reference Range]: 0.58 mg/dL (09/29/16 7:28 AM) 0.80 mg/dL (09/27/16 7:12 AM) 0.68 mg/dL (09/21/16 1: PM) Creatinine Lvl [0.50-1.40 mg/dL] 94 mL/min/1.73m2 1 *NA* (09/29/16:28 AM) 75 mL/min/1.73m2 2 *NA* (09/27/16 7:12 AM) 90 mL/min/1.73m2 3 *NA* (09/21/16: PM) eGFR 10 mg/dL (09/29/16 7:28 AM) 15 mg/dL (09/27/16 7:12 AM) 17 mg/dL (09/21/16 1: PM) BUN [7-22 mg/dL] 17 (5/4/17 7:28 AM) 25 (09/21/16 1:27 PM) B/C Ratio [6-25] 169 mg/dL *HI* (09/29/16 7:28 AM) 240 mg/dL *HI* (09/27/16 7:12 AM) 149 mg/dL *HI* (09/21/16 1:27 PM) Glucose Lvl [70-99 mg/dL] 6.7 g/dL (09/29/16 7:28 AM) 7.6 g/dL (09/21/16 1:27 PM) Total Protein [6.4-8.4 g/dL] 2.8 g/dL *LOW* (09/29/16 7:28 AM) 3.6 g/dL (09/21/16 1: PM) Albumin Lvl [3.5-5.0 g/dL] 3.9 g/dL (09/29/16 7:28 AM) 4.0 g/dL (09/21/16 1:27 PM) Globulin [2.7-4.2 g/dL] 0.7 (09/29/16 7:28 AM) 0.9 (09/21/16 1:27 PM) A/G Ratio [0.7-1.6] 8.7 mg/dL (09/29/16 7:28 AM) 8.4 mg/dL *LOW* (09/27/16 7:12 AM) 9.2 mg/dL (09/21/16 1:27 PM) Calcium Lvl [8.5-10.5 mg/dL] 1.8 mg/dL (09/29/16 7:28 AM) 1.8 mg/dL (09/21/16 1:27 PM) Magnesium Lvl [1.8-2.4 mg/dL] 27 unit/L (09/29/16 7:28 AM) 30 unit/L (09/21/16 1:27 PM) ALT [0-65 unit/L] 19 unit/L (09/29/16 7:28 AM) 15 unit/L (09/21/16 1:27 PM) AST [0-37 unit/L] 108 unit/L (09/29/16 7:28 AM) 102 unit/L (09/21/16 1:27 PM) Alk Phos [39-136 unit/L] 0.5 mg/dL (09/29/16 7:28 AM) 0.7 mg/dL (09/21/16 1:27 PM) Bili Total [0.2-1.3 mg/dL] 1Result Comment: The eGFR is calculated using the [...] from the National Kid[employer] Disease Education Program ( NKDEP) which additionally recommends that when the eGFR is used in patients with extremes of body mass index for purposes of drug dosing, the eGFR should be mul tiplied by the estimated BMI. 2Result Comment: The eGFR is calculated using the [...] from the National Kid[employer] Disease Education Program ( NKDEP) which additionally recommends that when the eGFR is used in patients with extremes of body mass index for purposes of drug dosing, the eGFR should be mul tiplied by the estimated BMI. 3Result Comment: The eGFR is calculated using the [...] from the National Kidney Disease Education Program ( NKDEP) which additionally recommends that when the eGFR is used in patients with extremes of body mass index for purposes of drug dosing, the eGFR should be mul tiplied by the estimated BMI. HEMATOLOGY 1 2 3 Most recent to oldest [Reference Range]: 12.4 K/CMM *HI* (09/29/16 7:28 AM) 13.6 K/CMM *HI* (09/27/16 7:12 AM) 11.8 K/CMM *HI* (09/21/16 1:27 PM) WBC [3.7-10.4 K/CMM] 3.83 M/CMM *LOW* (09/29/16:28 AM) 3.96 M/CMM *LOW* (09/27/16 7:12 AM) 4.66 M/CMM (09/21/16 1:27 PM) RBC [4.20-5.40 M/CMM] 11.6 g/dL *LOW* (09/29/16:28 AM) 11.9 g/dL *LOW* (09/27/16 7:12 AM) 14.0 g/dL (09/21/16 1:27 PM) Hgb [12.0-16.0 g/dL] 34.5 % *LOW* (09/29/16:28 AM) 35.9 % *LOW* (09/27/16 7:12 AM) 41.8 % (09/21/16 1:27 PM) Hct [36.0-48.0 %] 90.1 fL (09/29/16:28 AM) 90.5 fL (09/27/16 7:12 AM) 89.6 fL (09/21/16 1:27 PM) MCV [80.0-98.0 fL] 30.2 pg (09/29/16 7:28 AM) 30.0 pg (09/27/16 7:12 AM) 30.0 pg (09/21/16 1:27 PM) MCH [27.0-31.0 pg] 33.5 g/dL (09/29/16:28 AM) 33.1 g/dL (09/27/16 7:12 AM) 33.5 g/dL (09/21/16 1:27 PM) MCHC [32.0-36.0 g/dL] 14.0 % (09/29/16 7:28 AM) 14.2 % (09/27/16 7:12 AM) 14.0 % (09/21/16 1:27 PM) RDW [11.5-14.5 %] 214 K/CMM (09/29/16:28 AM) 205 K/CMM (09/27/16 7:12 AM) 252 K/CMM (09/21/16 1:27 PM) Platelet [133-450 K/CMM] 9.1 fL (09/29/16:28 AM) 8.5 fL (09/27/16:12 AM) 9.2 fL (09/21/16:27 PM) MPV [7.4-10.4 fL] 73.2 % (09/29/16: AM) 78.0 % *HI* (09/27/16 7:12 AM) 66.9 % (09/21/16 1:27 PM) Segs [45.0-75.0 %] 15.7 % *LOW* (09/29/16:28 AM) 12.7 % *LOW* (09/27/16 7:12 AM) 24.3 % (09/21/16 1:27 PM) Lymphocytes [20.0-40.0 %] 7.7 % (09/29/16:28 AM) 8.3 % (09/27/16 7:12 AM) 6.8 % (09/21/16 1:27 PM) Monocytes [2.0-12.0 %] 2.4 % (09/29/16:28 AM) 0.4 % (09/27/16 7:12 AM) 1.4 % (09/21/16 1:27 PM) Eosinophils [0.0-4.0 %] 1.0 % (09/29/16:28 AM) 0.6 % (09/27/16 7:12 AM) 0.6 % (09/21/16 1:27 PM) Basophils [0.0-1.0 %] 9.1 K/CMM *HI* (09/29/16 7:28 AM) 10.6 K/CMM *HI* (09/27/16 7:12 AM) 7.9 K/CMM (09/21/16 1:27 PM) Segs-Bands # [1.5-8.1 K/CMM] 1.9 K/CMM (09/29/16 7:28 AM) 1.7 K/CMM (09/27/16 7:12 AM) 2.9 K/CMM (09/21/16 1:27 PM) Lymphocytes # [1.0-5.5 K/CMM] 1.0 K/CMM *HI* (09/29/16 7:28 AM) 1.1 K/CMM *HI* (09/27/16 7:12 AM) 0.8 K/CMM (09/21/16 1:27 PM) Monocytes # [0.0-0.8 K/CMM] 0.3 K/CMM (09/29/16 7:28 AM) 0.1 K/CMM (09/27/16 7:12 AM) 0.2 K/CMM (09/21/16 1:27 PM) Eosinophils # [0.0-0.5 K/CMM] 0.1 K/CMM (09/29/16 7:28 AM) 0.1 K/CMM (09/27/16 7:12 AM) 0.1 K/CMM (09/21/16 1:27 PM) Basophils # [0.0-0.2 K/CMM] Immunizations Given and Recorded Vaccine Date Status Refusal Reason pneumococcal 13-valent vaccine 09/28/16 Given Procedures Procedure Date Related Diagnosis Body Site Appendectomy Carpal tunnel release Excision of tendon Open operation on knee meniscus Tonsillectomy Social History Social History Type Response Substance Abuse Use: None. Alcohol Never Smoking Status Never smoker; Exposure to Tobacco Smoke None; Cigarette Smoking Last 365 Days No; Reg Smoking Cessation Counseling No Assessment and Plan Extracted from: Title: Clinical Document Author: Nevin Leslie Date: 09/29/16 Progress Note - Daily [facility] Completed: September, 07:36 by Nevin Leslie MD RM: 421 - 1D, SE [id number] (: 1945) F Attending: Nevin Leslie MDPhone: Service: Oncology Reason for Admission: UNK Working DRG: Malignancy, female reproductive system w/o CC/HALF-WAY Code status: Full Code [Ordered]Current diet: Isolation: None Documented Allergies: NKDA SUBJECTIVE Feeling well Meeting all milestones OBJECTIVE General- NAD, A&Ox3 CVS- RRR Chest- CTAB no wheezing Abdomen- Soft appropriately tender, +BS, incision CDI Extremities- no CCE Skin- No rashes or lesions appreciated 24hr Labs 09/28 2131 Glucose RYT585 H 09/28 1731 Glucose GXB092 H 09/28 1626 Glucose HYQ364 H 09/28 1156 Glucose YWV782 H 09/28 0735 Glucose UDU303 H Mata still necessary (Yes/No): Line still necessary (Yes/No): VitalsTmp(F)[id number] 09/29 04:4598.769952/8016------ 09/28 22:2398.7831665/7716------ 09/28 21:12 1697 2.0L/m 09/28 20:35 2.0L/m 09/28 19:4298.996207/8216------ 24 Hr Tmax: 98.5F (36.94c) at 09/29 04:45Vital Signs are the last 5 in the past 48 hours. DateWt(kg)Wt(lb)Ht(cm)Ht(in)Method 09/21 (initial)118.18 260.00Measured 62.56 64.00Stated I&ORecordInOutBal 09/323hr Tot 0 200 -200 09/223hr Tot 910 850 60 Medications (27) Active Scheduled Meds (12): 09/27/16 enoxaparin (Lovenox) 40 mg SUB-Q krjwL64H 09/27/16 furosemide (Lasix 20 mg oral tablet) 20 mg PO Daily 09/27/16 gabapentin (gabapentin 300 mg oral capsule) 300 mg PO Q8H 09/27/16 glipiZIDE (Glucotrol) 10 mg PO BID-Before Meals 09/27/16 levothyroxine 50 microgram PO Q630AM 09/27/16 lisinopril 10 mg PO Daily 09/27/16 metFORMIN (metFORMIN 500 mg oral tablet) 500 mg PO BID 09/27/16 montelukast 10 mg PO Bedtime 09/27/16 pantoprazole (Protonix) 40 mg PO Daily 09/27/16 polyethylene glycol 3350 (MiraLax) 17 gm PO Daily 09/27/16 senna 8.6 mg PO BID 09/28/16 sertraline 50 mg PO Daily Unscheduled Meds: None PRN Meds (15): 09/26/16 Dextrose 50% in Water IV (Dextrose 50% Syringe) 12.5 gm IVP PRN 09/26/16 Dextrose 50% in Water IV (Dextrose 50% Syringe) 25 gm IVP PRN 09/27/16 LORazepam (Ativan) 0.5 mg PO BID 09/27/16 acetaminophen-hydrocodone 1 tab PO Q4H 09/27/16 acetaminophen-hydrocodone 2 tab PO Q4H 09/27/16 albuterol (albuterol 0.042% inhalation solution) 1.25 mg PO RQ4H 09/27/16 diphenhydrAMINE (Benadryl) 25 mg PO Q4H 09/26/16 glucagon 1 mg IM PRN 09/27/16 ibuprofen 800 mg PO Q8H 09/26/16 insulin aspart 2 unit SUB-Q TID-Before Meals 09/26/16 insulin aspart 4 unit SUB-Q TID-Before Meals 09/26/16 insulin aspart 6 unit SUB-Q TID-Before Meals 09/26/16 insulin aspart 8 unit SUB-Q TID-Before Meals 09/26/16 insulin aspart 10 unit SUB-Q TID-Before Meals 09/26/16 naloxone 0.04 mg IVP Q2MIN One Time Meds: None Continuous Infusions: None ASSESSMENT & EXAM 1) Pain- continue PO meds 2) Pulm/CV-VSS, continue IS 3) Heme-Hg stable, no sx of anemia. Lovenox continue. 4) GI-continue reg diet, ambultation encouraged 5) -voiding spont 6) PPX- lovenox, IS, SCDs, progressive ambulation. Nevin Leslie MD Gynecologic Oncology Staff [phone] Extracted from: Title: Clinical Document Author: Mariama Nevin Nassar Date: 09/26/16 MD R4 AUDIT OFFICER Intake H&P cc: presents for scheduled surgery History of Present Illness HPI Ms. Lennon is a 70 year old female, who presents for scheduled ExLap/SOFÍA/BSO with frozen section analysis, possible staging based on frozen section with PPALND/JOSHUA/APPY and all other indicated procedures 2/2 atyical hyperplasia bordering on adenocarcinoma. Ptnt was diagnosed with endometrial cancer by EMB after presenting with c/o postmenopausal bleeding. She reports menarche at 14 years old with regular 28 day cycles and menstruation of 3 days duration, and began menopause in her early 40s. She reports one prior episode of bleeding in 2013 for which she does not recall any diagnostics or treatments. This episode of postmenopausal bleeding began at the end of 2015, she had an endometrial biopsy on 05/27/2016 with diagnosis of atypical hyperplasia bordering on adenocarcinoma. CT AP done on 06/10/16 No evidence of metastatic disease within the abdomen or pelvis (Results in Care 4). Since that time she reports intermittent spotting for which she wears a liner daily. She also reports occasional cramping similar to menstrual cramps. She reports normal bowel and bladder. She last had a mammogram 07/10/16 BR2 and bone scan 06/30/16 showed normal risk for fracture, and has not had any colonoscopy. She has since been seen by her PCP and cleared for surgery. Patient saw Dr. Reveles and he is willing to perform hernia repair at the time of her hysterectomy at [facility]. Patient returns today for follow up and consents. She is on the OR schedule on 09/26/16. Review of Systems Const: no fever, no chills, no weight loss, no weight gain. The patient presents with complaints of vision changes. Pertinent Medical History: cataract(s), diabetes mellitus, hypertension and thyroid disease. CV: no chest pain, no palpitations. Resp: no SOB, no cough, no wheezing. The patient presents with complaints of rare episodes of mild diarrhea (one episode which she attributes to excess vegetable consumption). Skin: no skin lesions, no rash. : no urinary frequency, no urinary urgency, no dysuria, no hematuria, no abnormal vaginal bleeding, no pelvic pain. The patient presents with complaints of leg pain, radiating to the bilateral knee (chronic knee pain, bilateral). Neuro: no numbness, no tingling, no burning sensations, good coordination. Psych: depression. Endo: no hot flashes, no night sweats. Heme/Lymph: no lymphedema, no tendency for easy bruising . Active Problems Endometrial cancer determined by uterine biopsy (182.0) (C54.1) Hernia, abdominal (553.9) (K46.9) Past Medical History History of arthritis (V13.4) (Z87.39) History of asthma (V12.69) (Z87.09) History of depression (V11.8) (Z86.59) History of diabetes mellitus (V12.29) (Z86.39) History of esophageal reflux (V12.79) (Z87.19) History of hyperlipidemia (V12.29) (Z86.39) History of hypertension (V12.59) (Z86.79) History of hypothyroidism (V12.29) (Z86.39) Surgical History History of Appendectomy History of Knee Surgery History of Neuroplasty Median Nerve At Carpal Tunnel History of Tonsillectomy Family History Family history of essential hypertension (V17.49) (Z82.49) : Mother, Sister Family history of lung cancer (V16.1) (Z80.1) : Father Gynecological History Prior pregnancies: : 1. Para: 0 (full-term),0 (premature),1 (abortions)and0 (living). Additional history details: 1 miscarriage(s). She is not sexually active. Her current reproductive status is postmenopausal. For contraception, she uses no contraception. Social History Never smoker No alcohol use Current Meds Cephalexin 500 MG Oral Tablet (Cephalexin Monohydrate); Therapy: 16Ise4574 to Recorded Dicyclomine HCl - 10 MG Oral Capsule; Therapy: 21Mtl2985 to Recorded Gabapentin 300 MG Oral Capsule; Therapy: 45Iep9300 to Recorded Glimepiride 4 MG Oral Tablet; Therapy: 02Dxs5252 to Recorded Levothyroxine Sodium 50 MCG Oral Tablet; Therapy: 74Oqe6059 to Recorded Lisinopril 10 MG Oral Tablet; Therapy: 10Fkn9610 to Recorded Loperamide HCl - 1 MG/5ML Oral Liquid; Therapy: 28Mwq8242 to Recorded Loperamide HCl 2 MG TABS; Therapy: 49Zec0620 to Recorded LORazepam 2 MG Oral Tablet; Therapy: 41Gjn7365 to Recorded MetFORMIN HCl - 500 MG Oral Tablet; Therapy: 36Ghc1828 to Recorded MetOLazone 2.5 MG Oral Tablet; Therapy: 58Mum4786 to Recorded Montelukast Sodium 10 MG Oral Tablet; Therapy: 59Wqx2002 to Recorded Omeprazole 40 MG Oral Capsule Delayed Release; Therapy: 93Edp3213 to Recorded Pantoprazole Sodium 40 MG Oral Tablet Delayed Release; Therapy: 17Vog1817 to Recorded Potassium Chloride Rosalee ER 20 MEQ Oral Tablet Extended Release; Therapy: 65Mkf6645 to Recorded Sertraline HCl - 50 MG Oral Tablet; Therapy: 65Xtq0326 to Recorded Torsemide 20 MG Oral Tablet; Therapy: 00Msw0239 to Recorded Vitamin D3 5000 UNIT Oral Tablet; Therapy: 47Krz9547 to Recorded Allergies No Known Drug Allergies Physical Exam defer to time of presentation for surgery COMPARISON: Comparison is made with pelvic ultrasound [...] bilateral L4-5 and L5- S1 facet osteoarthritis. Labs 07/13/16: CEA 0.6, Hgb 13.5, plt 246, CA125, 7.9, HgbA1C 8.6%, TSH 2.96, ALT 29, AST 14, Cr 0.8 Assessment & Plan 70 year old female, who presents for scheduled ExLap/SOFÍA/BSO with frozen section analysis, possible staging based on frozen section with PPALND/JOSHUA/APPY and all other indicated procedures 2/2 atyical hyperplasia bordering on adenocarcinoma 1) Atypical hyperplasia bordering on adenocarcinoma: proceed to or for scheduled surgery-- exlap/SOFÍA/BSO with frozen section analysis, possible staging based on frozen section with PPALND/JOSHUA/APPY/other indicated procedures. Risks/ benefits/ alternatives discussed with the patient including risk of bleeding, risk of need for hysterectomy, risk of infection, risk of need for transfusion including but not limited to transfusion reaction which can be as simple as fever and as severe as end organ damage or risk of acquisition of bloodbourne infection such as HIV or hepatitis, as well as risk of injury to surrounding structures including but not limited to bowel, bladder, ovaries, nerves, vessels, ureters. Risk of VTE, PNA and other unforseen risks also d/w ptnt. Patient verbalizes understanding and wishes to continue with the procedure. RTC in 2wks for postop check 2) Umbilical hernia: Dr. Revlees (general surgery) to perform co-surgery 3) Comorbidities: plan to resume home meds while in house Plan per Dr. Mariama Antonio MD, PGY4 Obstetrics & Gynecology [facility]
[2018-04-11] MEDS ORDERED: ACETAMINOPHEN 325 MG TAB PO ONE ×2 (10:00→12:00)
--- NOTE | 2018-04-11 10:59 | Diagnostic Imaging Report ---
EXAMINATION: Head and cervical spine CT without contrast. HISTORY: Alteration of consciousness. Status post fall the day before, CVA. Head and neck pain. COMPARISON: None. TECHNIQUE: Multidetector axial images were obtained without contrast from the foramen magnum to the vertex and through the cervical spine. The images were reconstructed using brain and bone algorithms. Thin section brain images were reformatted into coronal and sagittal planes. Dose modulation, iterative reconstruction, and/or weight based adjustment of the mA/kV was utilized to reduce the radiation dose to as low as reasonably achievable. Image quality: X-ray beam attenuation/patient's motion limits the evaluation of the lower cervical spine. HEAD CT FINDINGS: Skull: No lytic or blastic lesions. No fractures. Parenchyma: Normal. No mass, hemorrhage or CT evidence of acute vascular insult. Brain volume: Normal for age. Ventricles: No hydrocephalus or displacement. Arteries: No density suggestive of thrombus. Dural sinuses: No abnormal density. Extra-axial spaces: No abnormal density. Foramen magnum: No mass, Chiari malformation, or basilar invagination. Sella: No obvious mass. Paranasal/mastoid sinuses: Imaged portions unremarkable. CERVICAL SPINE CT FINDINGS: Alignment:Normal alignment and lordosis. Soft tissues: Normal. Vertebrae: Normal height and density. No acute fracture, infection or neoplasm. Degenerative changes: C1-C2: Normal C2-C3: Facet arthrosis on the right without significant stenoses. C3-C4: Uncovertebral and facet arthrosis. Moderate foraminal stenoses worse on the right. C4-C5: Bilateral facet arthrosis. Mild foraminal stenosis midline and the right. C5-C6: Disc osteophyte formation, bilateral uncovertebral and facet arthrosis. Moderate bilateral foraminal stenoses. C6-C7: Disc osteophyte complex formation asymmetric to the left, uncovertebral and facet arthrosis mainly on the left. Moderately severe left foraminal stenosis. C7-T1: Uncovertebral and facet processes. Moderate foraminal stenoses. IMPRESSION: Head CT: No intracranial abnormalities, particularly no acute postraumatic intracranial hemorrhage. Cervical spine CT: 1. No acute fractures or dislocations. 2. Chronic degenerative changes as described. Note: Acute post traumatic spinal cord, vascular or ligamentous injury cannot adequately be assessed with CT. Signed by: Dr. Krystle Colvin M.D. on 04/11/2018 10:55 AM
--- NOTE | 2018-04-11 11:19 | Diagnostic Imaging Report ---
Exam: Right shoulder, single view History: Fall, concern for fracture Comparison: None. Findings: No acute, displaced fracture or dislocation though evaluation is limited on this single frontal radiograph. Moderate degenerative changes of the acromioclavicular and glenohumeral joints. Partially visualized right hemithorax is well aerated. Impression: No acute displaced fracture. Signed by: Dr. Cash Pruett M.D. on 04/11/2018 11:15 AM
--- NOTE | 2018-04-11 11:21 | Diagnostic Imaging Report ---
Exam: Right knee 2 views History: Fall, concern for fracture Comparison: None. Findings: No acute, displaced fracture or dislocation. Moderate medial and patellofemoral compartment predominant tricompartmental joint space disease with joint space narrowing, subchondral sclerosis, and marginal osteophytosis. No significant joint effusion. Soft tissues unremarkable. Impression: No acute osseous abnormalities. Moderate degenerative joint disease. Signed by: Dr. Cash Pruett M.D. on 04/11/2018 11:18 AM
--- NOTE | 2018-04-11 11:24 | Diagnostic Imaging Report ---
Exam: Right hip 2 views, pelvis History: Status post fall, concern for fracture Comparison: None. Findings: No acute, displaced fracture or dislocation. The femoral head projects appropriately over the acetabulum. There is mild symmetric joint space narrowing of the hips with marginal acetabular osteophytosis. Sacroiliac joints are intact. Soft tissues are unremarkable. Impression: No acute osseous abnormality. Signed by: Dr. Cash Pruett M.D. on 04/11/2018 11:20 AM
[2018-04-11] MEDS ORDERED: ONDANSETRON HCL 4 MG ORAL DISINTEGRATING TAB PO ONE (11:45)
[2018-04-11] MEDS ORDERED: KETOROLAC TROMETHAMINE 60 MG/2 ML VIAL IM ONE (11:45)
== END 2018-04-11 12:41 | disposition home or self-care (01) ==
LOC: ER 09:53
DX: S00.83XA Contusion of other part of head, initial encounter (principal); S40.011A Contusion of right shoulder, initial encounter; S70.01XA Contusion of right hip, initial encounter; W06.XXXA Fall from bed, initial encounter; Y93.84 Activity, sleeping; Y92.003 Bedroom of unspecified non-institutional (private) residence as the place of occurrence of the external cause; I10 Essential (primary) hypertension; E11.9 Type 2 diabetes mellitus without complications; E78.5 Hyperlipidemia, unspecified; E66.01 Morbid (severe) obesity due to excess calories
CPT/HCPCS: 70450; 72125; 73020; 73502; 73560; 99284; J1885; J2405

== ENCOUNTER 2018-07-27 19:42 | Emergency (ER) | payer MEDICARE ==
[~2018-07-27] VITALS: Ht 162.6 cm; Wt 147.4 kg
--- OUTSIDE RECORDS SUMMARY | 2018-07-27 19:47 | XMS REPORT ---
Author Author [facility] Address Unknown Phone Unavailable Care Team Providers Care Divider Operator Name Role Phone Alicia WEN Unavailable Unavailable Problems This patient has no known problems. Allergies, Adverse Reactions, Alerts This patient has no known allergies or adverse reactions. Medications This patient has no known medications. Results Test Description Test Time Test Comments Text Results Atomic Results Result Comments HIP RIGHT 2-3 VW (+/- PELVIS) 2018-04-11 11:18:00 [place] [address] Patient Name: JOSE SHAH MR #: [id number] : 1945 Age/Sex: 72/F Req #: [id number] Adm Physician: Ordered by: JENNIFER WEN MD Report #: [id number] Location: ER Room/Bed: Procedure: [id number] DX/HIP RIGHT 2-3 VW (+/- PELVIS) Exam Date: Exam Time: REPORT STATUS: Signed Exam: Right hip 2 views, pelvis History: Status post fall, concern for fracture Comparison: None. Findings: No acute, displaced fracture or dislocation. The femoral head projects appropriately over the acetabulum. There is mild symmetric joint space narrowing of the hips with marginal acetabular osteophytosis. Sacroiliac joints are intact. Soft tissues are unremarkable. Impression: No acute osseous abnormality. Signed by: Dr. Tito Mcneill M.D. on 04/11/2018 11:20 AM Dictated By: TITO MCNEILL MD 19 Transcribed By: TUTU on 04/11/181119 COPY TO: JENNIFER WEN MD KNEE RIGHT 1-2 VIEWS 2018-04-11 11:15:00 [place] [address] Patient Name: JOSE SHAH MR #: [id number] : 1945 Age/Sex: 72/F Req #: [id number] Adm Physician: Ordered by: JENNIFER WEN MD Report #: [id number] Location: ER Room/Bed: Procedure: [id number] DX/KNEE RIGHT 1-2 VIEWS Exam Date: Exam Time: REPORT STATUS: Signed Exam: Right knee 2 views History: Fall, concern for fracture Comparison: None. Findings: No acute, displaced fracture or dislocation. Moderate medial and patellofemoral compartment predominant tricompartmental joint space disease with joint space narrowing, subchondral sclerosis, and marginal osteophytosis. No significant joint effusion. Soft tissues unremarkable. Impression: No acute osseous abnormalities. Moderate degenerative joint disease. Signed by: Dr. Tito Mcneill M.D. on 04/11/2018 11:18 AM Dictated By: TITO MCNEILL MD 17 Transcribed By: TUTU on 04/11/181117 COPY TO: JENNIFER WEN MD SHOULDER RIGHT 1 VIEW 2018-04-11 11:13:00 [place] [address] Patient Name: JOSE SHAH MR #: [id number] : 1945 Age/Sex: 72/F Req #: [id number] Adm Physician: Ordered by: JENNIFER WEN MD Report #: [id number] Location: ER Room/Bed: Procedure: [id number] DX/SHOULDER RIGHT 1 VIEW Exam Date: Exam Time: REPORT STATUS: Signed Exam: Right shoulder, single view History: Fall, concern for fracture Comparison: None. Findings: No acute, displaced fracture or dislocation though evaluation is limited on this single frontal radiograph. Moderate degenerative changes of the acromioclavicular and glenohumeral joints. Partially visualized right hemithorax is well aerated. Impression: No acute displaced fracture. Signed by: Dr. Tito Mcneill M.D. on 04/11/2018 11:15 AM Dictated By: TITO MCNEILL MD 14 Transcribed By: TUTU on 04/11/181114 COPY TO: JENNIFER WEN MD CT BRAIN WO 2018-04-11 10:49:[address] [address] Patient Name: JOSE SHAH MR #: [id number] : 1945 Age/Sex: 72/F Req #: [id number] Adm Physician: Ordered by: JENNIFER WEN MD Report #: [id number] Location: ER Room/Bed: Procedure: [id number] CT/CT BRAIN WO Exam Date: 04/11/18 Exam Time: 1030 REPORT STATUS: Signed EXAMINATION: Head and cervical spine CT without contrast. HISTORY: Alteration of consciousness. Status post fall the day before, CVA. Head and neck pain. COMPARISON: None. TECHNIQUE: Multidetector axial images were obtained without contrast from the foramen magnum to the vertex and through the cervical spine. The images were reconstructed using brain and bone algorithms. Thin section brain images were reformatted into coronal and sagittal planes. Dose modulation, iterative reconstruction, and/or weight based adjustment of the mA/kV was utilized to reduce the radiation dose to as low as reasonably achievable. Image quality: X-ray beam attenuation/patient's motion limits the evaluation of the lower cervical spine. HEAD CT FINDINGS: Skull: No lytic or blastic lesions. No fractures. Parenchyma: Normal. No mass, hemorrhage or CT evidence of acute vascular insult. Brain volume: Normal for age. Ventricles: No hydrocephalus or displacement. Arteries: No density suggestive of thrombus. Dural sinuses: No abnormal density. Extra-axial spaces: No abnormal density. Foramen magnum: No mass, Chiari malformation, or basilar invagination. Sella: No obvious mass. Paranasal/mastoid sinuses: Imaged portions unremarkable. CERVICAL SPINE CT FINDINGS: Alignment:Normal alignment and lordosis. Soft tissues: Normal. Vertebrae: Normal height and density. No acute fracture, infection or neoplasm. Degenerative changes: C1-C2: Normal C2-C3: Facet arthrosis on the right without significant stenoses. C3-C4: Uncovertebral and facet arthrosis. Moderate foraminal stenoses worse on the right. C4-C5: Bilateral facet arthrosis. Mild foraminal stenosis midline and the right. C5-C6: Disc osteophyte formation, bilateral uncovertebral and facet arthrosis. Moderate bilateral foraminal stenoses. C6-C7: Disc osteophyte complex formation asymmetric to the left, uncovertebral and facet arthrosis mainly on the left. Moderately severe left foraminal stenosis. C7-T1: Uncovertebral and facet processes. Moderate foraminal stenoses. IMPRESSION: Head CT: No intracranial abnormalities, particularly no acute postraumatic intracranial hemorrhage. Cervical spine CT: 1. No acute fractures or dislocations. 2. Chronic degenerative changes as described. Note: Acute post traumatic spinal cord, vascular or ligamentous injury cannot adequately be assessed with CT. Signed by: Dr. Erasmo Colvin M.D. on 04/11/2018 10:55 AM Dictated By: ERASMO COLVIN MD 105 Transcribed By: TUTU on 04/11/18 105 COPY TO: JENNIFER WEN MD CT CERVICAL SPINE WO 2018-04-11 10:49:00 [place] [address] Patient Name: JOSE SHAH MR #: [id number] : 1945 Age/Sex: 72/F Req #: [id number] Adm Physician: Ordered by: JENNIFER WEN MD Report #: [id number] Location: ER Room/Bed: Procedure: [id number] CT/CT CERVICAL SPINE WO Exam Date: 04/11/18 Exam Time: 1030 REPORT STATUS: Signed EXAMINATION: Head and cervical spine CT without contras t. HISTORY: Alteration of consciousness. Status post fall the day before, CVA. Head and neck pain. COMPARISON: None. TECHNIQUE: Multidetector axial images were obtained without contrast from the foramen magnum to the vertex and through the cervical spine. The images were reconstructed using brain and bone algorithms. Thin section brain images were reformatted into coronal and sagittal planes. Dose modulation, iterative reconstruction, and/or weight based adjustment of the mA/kV was utilized to reduce the radiation dose to as low as reasonably achievable. Image quality: X-ray beam attenuation/patient's motion limits the evaluation of the lower cervical spine. HEAD CT FINDINGS: Skull: No lytic or blastic lesions. No fractures. Parenchyma: Normal. No mass, hemorrhage or CT evidence of acute vascular insult. Brain volume: Normal for age. Ventricles: No hydrocephalus or displacement. Arteries: No density suggestive of thrombus. Dural sinuses: No abnormal density. Extra-axial spaces: No abnormal density. Foramen magnum: No mass, Chiari malformation, or basilar invagination. Sella: No obvious mass. Paranasal/mastoid sinuses: Imaged portions unremarkable. CERVICAL SPINE CT FINDINGS: Alignment:Normal alignment and lordosis. Soft tissues: Normal. Vertebrae: Normal height and density. No acute fracture, infection or neoplasm. Degenerative changes: C1-C2: Normal C2-C3: Facet arthrosis on the right without significant stenoses. C3-C4: Uncovertebral and facet arthrosis. Moderate foraminal stenoses worse on the right. C4-C5: Bilateral facet arthrosis. Mild foraminal stenosis midline and the right. C5-C6: Disc osteophyte formation, bilateral uncovertebral and facet arthrosis. Moderate bilateral foraminal stenoses. C6-C7: Disc osteophyte complex formation asymmetric to the left, uncovertebral and facet arthrosis mainly on the left. Moderately severe left foraminal stenosis. C7-T1: Uncovertebral and facet processes. Moderate foraminal stenoses. IMPRESSION: Head CT: No intracranial abnormalities, particularly no acute postraumatic intracranial hemorrhage. Cervical spine CT: 1. No acute fractures or dislocations. 2. Chronic degenerative changes as described. Note: Acute post traumatic spinal cord, vascular or ligamentous injury cannot adequately be assessed with CT. Signed by: Dr. Erasmo Colvin M.D. on 04/11/2018 10:55 AM Dictated By: ERASMO COLVIN MD 1050 Transcribed By: TUTU on 04/11/18 105 COPY TO: JENNIFER WEN MD
--- NOTE | 2018-07-27 21:36 | Diagnostic Imaging Report ---
Examination: CT head without contrast Clinical Indication: Fall with head injury. Technique: Transaxial noncontrast images from the skull base through the vertex were obtained. Sagittal and coronal reformatted images were done. Dose modulation, iterative reconstruction, and/or weight based adjustment of the mA/kV was utilized to reduce the radiation dose to as low as reasonably achievable. Comparison: Head CT dated 04/11/2018. Findings: Scalp: No abnormalities. Bones: Intact. No fractures. No blastic or lytic lesions. Brain sulci: Appropriate for patient's age. Ventricles: Normal in size and configuration. No hydrocephalus. Extra-axial space: No abnormalities. Parenchyma: No abnormal densities. No masses, hemorrhage, or acute or chronic cortical based vascular insults. Suprasellar region: No abnormalities. Craniocervical junction: The foramen magnum is patent. No Chiari one malformation. Impression: No new or acute intracranial abnormality when compared to prior head CT dated 04/11/2018. Signed by: Dr. Ida Roberson M.D. on 07/27/2018 9:32 PM
--- NOTE | 2018-07-27 21:45 | Diagnostic Imaging Report ---
Examination: CT CERVICAL SPINE WITHOUT CONTRAST HISTORY:Fall with neck injury and pain. COMPARISON:Cervical spine CT dated 04/11/2018. TECHNIQUE: Multidetector helical axial images were obtained without contrast from the foramen magnum to T1. Coronal and sagittal reformatted images were done. Bone and soft tissue windows were evaluated. Dose modulation, iterative reconstruction, and/or weight based adjustment of the mA/kV was utilized to reduce the radiation dose to as low as reasonably achievable. FINDINGS: Alignment:Normal alignment and lordosis. Vertebrae: Normal height and density. No acute fracture, infection or neoplasm. Disc space heights: Normal height. Caliber of spinal canal: Developmentally normal. Posterior fossa and craniocervical junction: Foramen magnum patent. No Chiari 1 malformation. Soft tissues: No abnormality. Degenerative changes: Anterolateral osteophytes from C6 through T1. Moderate bilateral facet arthropathy with moderate right foraminal narrowing at C3-C4 and C5-C6. No canal stenosis. Visualized lung apices: No abnormalities. IMPRESSION: 1. No new acute abnormalities when compared to prior cervical spine CT dated 04/11/2018. Signed by: Dr. Ida Roberson M.D. on 07/27/2018 9:41 PM
--- NOTE | 2018-07-27 22:06 | Diagnostic Imaging Report ---
Knee limited right CPT code: 47173 Indication: Fall Technique: AP and lateral view obtained of the left knee. Comparison: None Findings: There is moderate medial and patellofemoral compartment narrowing and mild to moderate lateral compartment narrowing with marginal osteophytosis. There is a tiny joint effusion. No evidence of fracture or dislocation. No radiopaque foreign bodies in the soft tissues. IMPRESSION: No acute traumatic pathology. Degenerative changes as described above. Signed by: Dr. Eloisa Haas MD on 07/27/2018 10:02 PM
--- NOTE | 2018-07-27 22:09 | Diagnostic Imaging Report ---
Fingers Indication: Fall Technique: 3 portable images of the left fifth digit obtained Comparison: None Findings: The area of pain was not indicated or marked. There are mild to moderate generative changes of the distal IP joint. No gross evidence of fracture or dislocation. A tiny ossicle is adjacent to the head of the proximal phalanx of the fourth digit, suggestive of avulsion fracture. There is no apparent donor site. Remainder of the visualized osseous structures are intact. No dislocation. There is a small amount of soft tissue swelling along the fifth digit. IV catheter is in the dorsum of the hand. IMPRESSION: No acute fracture or dislocation of the fifth digit. Age indeterminate avulsion fracture from the head of the proximal phalanx of the fourth digit. Signed by: Dr. Eloisa Haas MD on 07/27/2018 10:06 PM
[2018-07-27 23:25] VITALS: BP 138/72
== END 2018-07-27 22:45 | disposition home or self-care (01) ==
LOC: ER 19:42
DX: S00.83XA Contusion of other part of head, initial encounter (principal); S00.03XA Contusion of scalp, initial encounter; S80.01XA Contusion of right knee, initial encounter; S90.122A Contusion of left lesser toe(s) without damage to nail, initial encounter; W01.0XXA Fall on same level from slipping, tripping and stumbling without subsequent striking against object, initial encounter; Y92.511 Restaurant or cafe as the place of occurrence of the external cause
CPT/HCPCS: 70450; 72125; 99284